=== PATIENT | male | born 1950 | race Caucasian/White ===

== ENCOUNTER 2017-05-30 10:26 | Emergency (ER) | payer MEDICARE ==
--- NOTE | 2017-05-30 12:04 | RAD ---
Indication: Neck swelling and head and neck purple discoloration when lying supine. Comparison: No relevant prior exams available on the [facility] for comparison. Technique: Ultrasound of the neck including Doppler of the bilateral internal jugular and subclavian veins. Report: The bilateral internal jugular and subclavian veins while patent demonstrate abnormal waveforms with loss of normal respiratory phasicity which may be seen in setting of SVC obstruction. Bilateral complete soft tissue neck ultrasound is without evidence for lymphadenopathy or other solid or cystic mass lesion. IMPRESSION: The bilateral internal jugular and subclavian veins while patent demonstrate abnormal waveforms with loss of normal respiratory phasicity which may be seen in setting of SVC obstruction. Correlate with clinical assessment and consider contrast-enhanced CT of the thorax for further assessment if deemed appropriate.
[2017-05-30 12:10] VITALS: BP 120/79
--- NOTE | 2017-05-30 12:23 | UC ---
Neck Pain HPI - HPI Summary HPI Summary: neck mass on the right side for a year . pt. was having an out patient imaging down for his right side neck mass it was noted that the pts face is turning blue, pt. denies any chest pain , no palpitation , soft tissue neck us was done : IMPRESSION: The bilateral internal jugular and subclavian veins while patent demonstrate abnormal waveforms with loss of normal respiratory phasicity which may be seen in setting of SVC obstruction. Correlate with clinical assessment and consider contrast- enhanced CT of the thorax for further assessment if deemed appropriate. - History of Current Complaint Chief Complaint: UCGeneralIllness Stated Complaint: RIGHT SIDE NECK COMPLAINT Time Seen by Provider: 05/30/17 11:04 Hx Obtained From: Patient, Family/Cytogenetics Technologist Onset/Duration Of Injury/Symptoms: Weeks - one year Timing: Constant Onset/Duration: Gradual Onset, Still Present Severity: Moderate Pain Intensity: 0 Location: Discrete At: - right side neck Character: Aching Aggravating Factors: Other: - lying down Alleviating Factors: Nothing Associated Signs & Symptoms: Positive: Swelling - right side neck - Allergies/Home Medications Allergies/Adverse Reactions: Allergies Allergy/AdvReac Type Severity Reaction Status Date / Time No Known Allergies Allergy Verified 05/30/17 11:52 Home Medications: Home Medications LORazepam [Ativan 2 MG TAB] 2 mg PO ONCE 05/30/17 [History Confirmed 05/30/17] Metformin ER (NF) 500 mg PO BID 05/30/17 [History Confirmed 05/30/17] Multivitamin [Multivitamins] 1 cap PO DAILY 05/30/17 [History Confirmed 05/30/17 ] PMH/Surg Hx/FS Hx/Imm Hx Endocrine History: Diabetes - Surgical History Surgical History: None - Family History Known Family History: Positive: Hypertension - Social History Alcohol Use: None Substance Use Type: Prescribed Smoking Status (MU): Former Smoker When Did the Patient Quit Smoking/Using Tobacco: 13 years ago Review Of Systems Constitutional: Positive: Negative Skin: Positive: Negative Eyes: Positive: Negative ENT: Positive: Negative Respiratory: Positive: Negative Cardiovascular: Positive: Negative All Other Systems Reviewed And Are Negative: Yes Physical Exam Triage Information Reviewed: Yes Appearance: Well-Appearing, No Pain Distress, Well-Nourished Vital Signs: Initial Vital Signs Temp 99.3 F 05/30/17 11:55 Pulse 168 05/30/17 11:55 Resp 22 05/30/17 11:55 BP 120/79 05/30/17 11:55 Pulse Ox 98 05/30/17 11:55 Vital Signs Reviewed: Yes Eyes: Positive: Conjunctiva Clear ENT: Positive: Normal ENT inspection, Hearing grossly normal, Pharynx normal Neck: Positive: Other: - + large mass right side of the neck , not tender, soft to touch , no erythema Respiratory: Positive: Chest non-tender, Lungs clear, Normal breath sounds, No respiratory distress Cardiovascular: Positive: Tachycardia Abdominal Exam: Normal Skin Exam: Normal Diagnostics - Laboratory Diagnostic Studies Completed/Ordered: us soft tissue neck : IMPRESSION: The bilateral internal jugular and subclavian veins while patent demonstrate. abnormal waveforms with loss of normal respiratory phasicity which may be seen in setting. of SVC obstruction. Correlate with clinical assessment and consider contrast-enhanced CT. of the thorax for further assessment if deemed appropriate. Neck Pain Course/Dx - Course Course Of Treatment: pt. will go to [facility] for eval. pt. signed AMA didn't want to take the ambulance ride - Differential Dx/Diagnosis Provider Diagnoses: neck mass. tachycardia Discharge - Discharge Plan Condition: Fair Disposition: AGAINST MEDICAL ADVICE Referrals: Harsha Hernandez MD [Primary Care Provider] -
== END 2017-05-30 12:20 | disposition left against medical advice (07) ==
LOC: UCCORT 10:26
DX: R22.1 Localized swelling, mass and lump, neck (principal); R00.0 Tachycardia, unspecified; E11.9 Type 2 diabetes mellitus without complications; Z79.84 Long term (current) use of oral hypoglycemic drugs; Z87.891 Personal history of nicotine dependence
CPT/HCPCS: 76536; 93005; 99202; G0463

== ENCOUNTER 2017-05-30 13:01 | Inpatient (IN) | payer MEDICARE ==
[2017-05-30] MEDS ORDERED: Diltiazem IV* 5 MG/ML 5 ML VIAL (for loading dose/IV Push) (25 MG) ONE (13:22)
[2017-05-30] MEDS ORDERED: Adenosine* 3 MG/ML VIAL ONE (13:27)
[2017-05-30] MEDS ORDERED: Adenosine* 3 MG/ML VIAL IV PUSH ONE (13:53)
[2017-05-30] MEDS ORDERED: Diltiazem IV* 5 MG/ML 5 ML VIAL (for loading dose/IV Push) (25 MG) IV SLOW PU ONE (13:53)
[2017-05-30] MEDS ORDERED: NS 0.9% 1000 ML*IV.FLUID IV ONE (13:53)
[2017-05-30 14:03] LABS: ABS Basophils 0.1 10^3/ul (0-0.2); ABS Eosinophils 0.1 10^3/ul (0-0.6); ABS Lymphocytes 1.7 10^3/ul (1.0-4.8); ABS Monocytes 0.7 10^3/ul (0-0.8); ABS Neutrophils 4.9 10^3/ul (1.5-7.7); ABS Nucleated RBC 0 10^3/ul; Hematocrit 41 % (42-52); Hemoglobin 13.6 g/dl (14.0-18.0); Lymphocyte % 23.2 % (25-47); Mean Corpuscular HGB Conc 33 g/dl (31-36); Mean Corpuscular Hemoglobin 30 pg (27-31); Mean Corpuscular Volume 91 fL (80-94); Mean Platelet Volume 8 um3 (7.4-10.4); Nucleated Red Blood Cells % 0.2; Platelet Count 222 10^3/ul (150-450); Red Blood Count 4.49 10^6/ul (4.0-5.4); Red Cell Distribution Width 13 % (10.5-15); White Blood Count 7.4 10^3/ul (3.5-10.8)
[2017-05-30 14:18] LABS: EGFR Non-African American 96.4 (>60)
--- NOTE | 2017-05-30 14:49 | RAD ---
HISTORY: Cyanosis COMPARISONS: August 15, 2007 VIEWS: 1: frontal portable view of the chest at 2:15 PM FINDINGS: LINES AND TUBES: None. CARDIOMEDIASTINAL SILHOUETTE: The cardiomediastinal silhouette is normal for portable technique. PLEURA: The costophrenic angles are sharp. No pleural abnormalities are noted. LUNG PARENCHYMA: There is hyperinflation. There is a 3.3 cm nodular density overlying the right upper lung. ABDOMEN: The upper abdomen is clear. There is no subphrenic gas. BONES AND SOFT TISSUES: No bone or soft tissue abnormalities are noted. IMPRESSION: 3.3 CM NODULAR DENSITY OVERLYING THE RIGHT LUNG APEX. RECOMMEND CONSIDERATION OF FURTHER EVALUATION WITH CONTRAST-ENHANCED CT OF THE CHEST.
[2017-05-30] MEDS ORDERED: Diltiazem IV VIAL* 125 MG in NS 0.9% 100 ML* 100 ML IVPB ONE (15:00)
[2017-05-30] MEDS ORDERED: Dextrose 50% Syringe 50 ML* 25 GM/50 ML SYRINGE IV PUSH PRN (15:41)
[2017-05-30] MEDS ORDERED: Metoprolol Tartrate IV* 1 MG/ML 5 ML VIAL IV ONE ×2 (15:45→17:01)
[2017-05-30] MEDS ORDERED: Metoprolol Tartrate IV* 1 MG/ML 5 ML VIAL ONE (15:49)
[2017-05-30] MEDS ORDERED: Diltiazem TAB* 30 MG PO SCH (16:00)
[2017-05-30] MEDS: Diltiazem TAB* 30 MG PO SCH ×2 (16:18→21:03)
[2017-05-30] MEDS ORDERED: Potassium Chlor TAB* 20 MEQ TAB.ER PO ONE (18:07)
[2017-05-30] MEDS ORDERED: LORazepam TAB(*) 1 MG PO SCH (19:00)
[2017-05-30] MEDS ORDERED: Insulin LISPRO* 1 UNITS UNIT SUBCUT ONE (20:16)
[2017-05-30] MEDS: Insulin LISPRO* 1 UNITS UNIT SUBCUT SCH (20:52)
[2017-05-30] MEDS: Rivaroxaban TAB(*) 20 MG TAB PO SCH (21:03)
--- NOTE | 2017-05-30 21:10 | HP ---
CC: Dr. Harsha Hernandez * HISTORY AND PHYSICAL: DATE OF ADMISSION: 05/30/17 PRIMARY CARE PROVIDER: Dr. Harsha Hernandez. ATTENDING PHYSICIAN: Vel Vazquez MD * (dictated by Lourdes Tijerina NP). CHIEF COMPLAINT: Right neck swelling for 1 year. HISTORY OF PRESENT ILLNESS: Mr. Tapia is a 67-year-old male with past medical history significant for diabetes mellitus and COPD, who was at the imaging center at urgent care today to undergo an MRA of his neck to evaluate a right neck mass that he has had for approximately 1 year. According to the patient, when they had him lie back and tip his head back for the imaging, his face turned pale and blue in color. Due to this, they sent the patient to urgent care for further evaluation. The patient denies any recent fever, chills, chest pain, nausea, vomiting, diarrhea. He reports cough with occasional phlegm production. He also report shortness of breath at baseline. He denies any palpitations. He reports feeling intermittently lightheaded when he stands up too fast. The patient underwent an ultrasound of his right neck today, showing a possible SVC syndrome. According to the patient, his primary care provider has been trying to arrange a CT scan for some time, but insurance keeps declining authorization for this. The patient was sent to the emergency room for further evaluation. While in the emergency room, the patient was found to have atrial fibrillation with RVR with the initial rate in the 160s. He received 6 mg IV adenosine slowing his rate down into the 60s. He was found to have an atrial flutter with a 4:1 block. He also received IV diltiazem in addition to some normal saline and he also had labs that were fairly unremarkable. He had a chest x- ray showing a 3.3 cm nodule density overlying the right lung apex. The hospitalists were asked to evaluate the patient for admission. PAST MEDICAL HISTORY: 1. Diabetes mellitus. 2. COPD. PAST SURGICAL HISTORY: None. HOME MEDICATIONS: 1. Multivitamin 1 tablet oral daily. 2. Metformin 500 mg oral twice daily. 3. Lorazepam 2 mg oral once prior to MRA today. ALLERGIES: No known drug allergies. FAMILY HISTORY: The patient's father had a history of a pacemaker. He denies any family history of diabetes mellitus. His paternal grandfather and maternal aunt had a history of lung cancer. SOCIAL HISTORY: The patient is a former smoker. He reports quitting approximately 12 years ago, when he was diagnosed with COPD. The patient reports drinking 6 12- ounce beers daily. He denies recreational drug use. He lives with his . His , Aide Tapia will be his surrogate decision maker in the event he is unable to make decisions for himself. REVIEW OF SYSTEMS: I performed an 11-point review of systems. All the pertinent positives and negatives are mentioned in the history of present illness. The remaining review of systems are negative. PHYSICAL EXAMINATION GENERAL APPEARANCE: The patient is alert, pleasant, appears to be in no acute distress. VITAL SIGNS: Temperature 97.7, heart rate 101, respiratory rate 17, O2 sat 98% on room air. HEENT: Normocephalic, atraumatic. Pupils are equal and reactive to light. Extraocular movements are intact. The patient has what appears to be soft tissue swelling to bilateral upper chest and into his neck with the right worse than the left. RESPIRATORY: There is no accessory muscle use. The lungs are clear to auscultation bilaterally. CARDIOVASCULAR: Irregular rate and rhythm. S1 and S2 present. There is no murmurs, rubs, or gallops heard. ABDOMEN: Soft, nontender, nondistended. There are bowel sounds present x4. EXTREMITIES: There is no lower extremity edema. DP and PT pulses are 2+ and symmetric. MUSCULOSKELETAL: There is no clubbing or cyanosis noted. The patient exhibits good strength in all extremities. NEUROLOGICAL: The patient is alert and oriented x4. Cranial nerves II through XII are grossly intact. PSYCHOLOGICAL: The patient is calm and cooperative. SKIN: There is no rashes or abnormalities seen. DIAGNOSTIC STUDIES/LAB DATA: Sodium 133, potassium 3.8, chloride 101, CO2 of 25, BUN 14, creatinine 0.80, glucose 212. White blood cell count 7.4, hemoglobin 13.6, hematocrit 41, platelet count 222,000. EKG from 1311 shows atrial fibrillation with RVR and a rate of 160. Repeat EKG at 1332, shows an atrial flutter with 4:1 block. There are no acute signs of ischemia and no previous EKGs for comparison. Chest x-ray from today shows a 3.3 cm nodular density overlying the right lung apex. Consider further evaluation with contrast enhanced CT of the chest. IMPRESSION: Mr. Tapia is a 67-year-old male with past medical history significant for chronic obstructive pulmonary disease, and diabetes mellitus, who presented to the emergency room today with new atrial fibrillation. He will be admitted as an observation for new onset atrial flutter. ASSESSMENT/PLAN: 1. New onset atrial flutter. The patient's heart rate is better controlled at this point. He has received an IV bolus of diltiazem, adenosine and 2 doses of metoprolol 5 mg each while in the emergency room. We also started him on oral Cardizem. We will continue him on Cardizem 30 mg oral every 6 hours. If this controls his rate, we will switch him to Cardizem CD. We will get an echocardiogram in the morning. The patient has a JKNCE-RPER-9 score of 2 points , and he will be started on Xarelto. If the patient continues to have an uncontrolled rhythm, we will consider getting a cardiology consult in the morning. We will monitor him on telemetry. 2. Diabetes mellitus. The patient reports being a newly diagnosed diabetic and states that he was just recently started on metformin. For now, I am going to hold his metformin, do fingersticks a.c. and h.s. with lispro sliding scale coverage. 3. Alcohol abuse. The patient is drinking 6 beers daily. I am going to put him on the [place] protocol with Ativan. 4. Chronic obstructive pulmonary disease. The patient has no signs of chronic obstructive pulmonary disease exacerbation at this time and is not currently on any home medications. 5. Possible subclavian syndrome. According to the patient's soft tissue ultrasound of his neck today, it appears he possibly has subclavian syndrome. In addition, he has a possible nodule in his right upper lung apex. The patient should have an outpatient CT scan to further evaluate for SVC syndrome and a possible lung mass. 6. Fluids, electrolytes, and nutrition. The patient will be on consistent carbohydrate diet. 7. Code status. Full code. 8. DVT prophylaxis. The patient is at high risk and will be started on Xarelto for his atrial fibrillation. 9. Disposition. Observation. TIME SPENT: Time for this admission was approximately 60 minutes, greater than half of that was spent with the patient and his discussing medications, past medical history, and the events leading up to his arrival today and performing a physical examination. The case has been reviewed with the attending Dr. Vazquez, who agrees with the plan of care. Reviewed by KAMILLA LANDA-uYki 05/31/17 1541 [id number]/[facility] #: [id number] MTDD
[2017-05-30] MEDS ORDERED: Heparin VIAL(*) 5000 UNITS/ML VIAL (FIVE THOUSAND) SUBCUT SCH (22:00)
[2017-05-31] MEDS: Diltiazem TAB* 30 MG PO SCH ×4 (03:45→21:34)
[2017-05-31] MEDS: Folic Acid TAB* 1 MG PO SCH (08:51)
[2017-05-31] MEDS: Multivitamins/Minerals TAB PO SCH (08:51)
[2017-05-31] MEDS: Insulin LISPRO* 1 UNITS UNIT SUBCUT SCH ×3 (08:54→17:25)
[2017-05-31] MEDS: Thiamine TAB* 100 MG TAB PO SCH (08:59)
--- NOTE | 2017-05-31 13:49 | PN ---
Subjective Date of Service: 05/31/17 Interval History: Patient seen and examined. Very anxious, concerned about what's happening to him , needs much reassurance about POC and communication with his PCP Dr. Britton. Explained POC to him and his and they are agreeable. Patient denies chest pain, c/o SOB when laying flat with head pressure and swimming sensation. No palpitations currently, denies n/v/d. Denies fever or chills. Objective Active Medications: Dextrose (D50w Syringe 50 Ml*) 12.5 gm IV PUSH .FOR FS < 60 - SS PRN PRN Reason: FS < 60 Diltiazem HCl (Cardizem Tab*) 30 mg PO Q6H [facility] Last Admin: 05/31/17 10:49 Dose: 30 mg Folic Acid (Folvite Tab*) 1 mg PO DAILY [facility] Last Admin: 05/31/17 08:51 Dose: 1 mg Insulin Human Lispro (Humalog*) 0 - 5 units SUBCUT AC [facility] PRN Reason: Protocol Last Admin: 05/31/17 12:43 Dose: 3 units Lorazepam (Ativan Tab(*)) 0 - [address] [facility] PROTOCOL [facility] PRN Reason: Protocol Lorazepam (Ativan Inj*) 2 mg IV PUSH ONCE ONE Stop: 05/31/17 14:01 Multivitamins/Minerals (Theragran/Minerals Tab*) 1 tab PO DAILY [facility] Last Admin: 05/31/17 08:51 Dose: 1 tab Rivaroxaban (Xarelto(*)) 20 mg PO 1700 [facility] Last Admin: 05/30/17 21:03 Dose: 20 mg Thiamine HCl (Vitamin B-1 Tab*) 100 mg PO DAILY [facility] Last Admin: 05/31/17 08:59 Dose: 100 mg Vital Signs - 8 hr 05/31/17 05/31/17 05/31/17 05:56 08:00 08:05 Temperature 98.6 F Pulse Rate 90 98 Respiratory 16 16 Rate Blood Pressure 113/68 126/77 (mmHg) O2 Sat by Pulse 97 100 Oximetry 05/31/17 05/31/17 05/31/17 09:10 10:08 12:00 Temperature 97.4 F 97.7 F 97.6 F Pulse Rate 68 96 96 Respiratory 14 20 Rate Blood Pressure 130/80 114/65 120/70 (mmHg) O2 Sat by Pulse 98 96 97 Oximetry Oxygen Devices in Use Now: Nasal Cannula Appearance: Alert, anxious Eyes: PERRLA Ears/Nose/Mouth/Throat: NL Teeth, Lips, Gums, Mucous Membranes Moist, - Neck: Trachea Midline, - - edematous neck, primarily right side diffuse spread to right anterior chest, no bruit Respiratory: Symmetrical Chest Expansion and Respiratory Effort, Clear to Auscultation Cardiovascular: NL Sounds; No Murmurs; No JVD, RRR Extremities: No Edema, No Clubbing, Cyanosis Skin: No Rash or Ulcers Neurological: Alert and Oriented x 3, NL Gait, NL Muscle Strength and Tone Nutrition: Taking PO's Result Diagrams: 05/30/17 13:49 05/30/17 13:49 Diagnostic Imaging: Patient Name: ALEENA GODFREY Medical Record#: [id number] Ordering Physician: Tony Schneider MD Acct.#: [id number] : 1950 Age: 67 Sex: M Location: EMERGENCY DEPARTMENT Exam Date: 05/30/17 1316 ADM Status: REG ER Order Information: CHEST AP PORTABLE Accession Number: [id number] CPT: 85591 HISTORY: Cyanosis COMPARISONS: August 15, 2007 VIEWS: 1: frontal portable view of the chest at 2:15 PM FINDINGS: LINES AND TUBES: None. CARDIOMEDIASTINAL SILHOUETTE: The cardiomediastinal silhouette is normal for portable technique. PLEURA: The costophrenic angles are sharp. No pleural abnormalities are noted. LUNG PARENCHYMA: There is hyperinflation. There is a 3.3 cm nodular density overlying the right upper lung. ABDOMEN: The upper abdomen is clear. There is no subphrenic gas. BONES AND SOFT TISSUES: No bone or soft tissue abnormalities are noted. IMPRESSION: 3.3 CM NODULAR DENSITY OVERLYING THE RIGHT LUNG APEX. RECOMMEND CONSIDERATION OF FURTHER EVALUATION WITH CONTRAST-ENHANCED CT OF THE CHEST. <Electronically signed by Maldonado Nunez MD in [place]> 05/30/17 1446 Dictated By: Maldonado Nunez MD Dictated Date/Time: 05/30/17 1446 Transcribed Date/Time: 05/30/17 1445 Copy to: Assess/Plan/Problems-Billing Assessment: This is a 67 year old male patient with a 1 year history of neck mass and possible SVC syndrome that had an episode of new onset atrial fibrillation during an MRA of the neck, with accompanying acute shortness of breath with hypoxia and headache/pressure while lying flat. - Patient Problems (1) Neck mass Code(s): R22.1 - LOCALIZED SWELLING, MASS AND LUMP, NECK SNOMED Code(s): 118336244 Comment: - High suspicion for SVC syndrome considering decompensation during MRA and cardiac instability - CXR also with nodular density of the right lung apex - CT soft tissues of the neck, chest abdomen and pelvis with contrast today - Tried to lay patient flat in room while on tele, difficult for him to tolerate (intense head pressure and increasing SOB), will place on oxygen for CT as well as ativan IV (2) New onset atrial fibrillation Code(s): I48.91 - UNSPECIFIED ATRIAL FIBRILLATION SNOMED Code(s): 35216481 Comment: - With RVR and hypoxia - Multiple doses of adenosine, cardizem and BB - Finally converted to RSR, sometimes tachycardic - Cardizem PO Q6H, transitioning to long-acting cardizem tomorrow - Initiated AC with xarelto - Continue telemetry (3) History of COPD Code(s): Z87.09 - PERSONAL HISTORY OF OTHER DISEASES OF THE RESPIRATORY SYSTEM SNOMED Code(s): 219876804 Comment: - Not in exacerbation (4) Anxiety Code(s): F41.9 - ANXIETY DISORDER, UNSPECIFIED SNOMED Code(s): 15867121 Comment: - Will give IV ativan prior to CT scans (5) ETOHism Code(s): F10.20 - ALCOHOL DEPENDENCE, UNCOMPLICATED SNOMED Code(s): 9051354 Comment: - On [place] protocol (6) DVT prophylaxis Code(s): JFK9409 - SNOMED Code(s): 000455111 Comment: - On xarelto (7) Full code status Code(s): Z78.9 - OTHER SPECIFIED HEALTH STATUS SNOMED Code(s): 120626788 Comment: - Full code Status and Disposition: Remain inpatient Counseling and/or Coordination of Care Minutes: Coordinated with Dr. Britton, his PCP
[2017-05-31] MEDS ORDERED: LORazepam INJ* 2 MG/ML 1 ML VIAL IV PUSH ONE (14:00)
[2017-05-31] MEDS ORDERED: Perflutren Lipid Microsphere* 3 ML VIAL ONE (14:02)
[2017-05-31] MEDS ORDERED: Iodixanol* (CONTRAST) 320 MG/ML 100 ML SDV IV ONE (15:00)
--- NOTE | 2017-05-31 16:43 | RAD ---
Indication: Neck mass. Contrast: Administered 50.2 ml of VISIPAQUE 320 mg/ml. CT of the neck was performed after IV contrast administration. Coronal and sagittal reconstructed images were obtained. The lung apices demonstrate a mass in the right lung apex measuring up to 3.0 cm. There is right paratracheal adenopathy noted. Inferior thyroid lobes are unremarkable. Submandibular glands are unremarkable. Dental artifact is noted. Parotid glands are otherwise unremarkable. Multiple collateral vessels are noted in the mediastinum and lower neck. No discrete masses are noted. The internal jugular veins are patent. IMPRESSION: There is a lung mass in the right apex. No significant adenopathy is noted in the neck, although multiple collaterals are noted. There is likely superior vena cava obstruction due to adenopathy. No discrete neck masses are noted.
--- NOTE | 2017-05-31 16:50 | RAD ---
INDICATION: Superior vena cava syndrome. Assess for neoplasm. COMPARISON: Chest radiograph and Ultrasound of the bilateral internal jugular and subclavian veins of one day prior. TECHNIQUE: Multidetector CT images were obtained from the lung apices to the ischial tuberosities with 96 mL Visipaque 320 IV contrast. Oral contrast administered. CHEST REPORT: Spiculated 2.4 x 3.3 cm mass at the apical segment of the RIGHT upper lobe corresponding with the chest radiograph finding. Tethering/architectural distortion of the surrounding RIGHT lung apex. No additional focal pulmonary lesions. Small dependent RIGHT pleural effusion. RIGHT paratracheal lymphadenopathy inseparable from near complete thrombosis of the superior vena cava. Precarinal and subcarinal lymphadenopathy. 1.7 cm short axis precarinal and 2.6 cm short axis subcarinal lymph nodes. 1.7 cm short axis RIGHT suprahilar lymph node. Bilateral subcentimeter axillary lymph nodes. Extensive opacified collateral veins from the LEFT upper extremity peripheral venous contrast injection at the shoulder, supraclavicular region, upper back, and mediastinum extending to the intrahepatic/suprahepatic inferior vena cava. Negative for cardiomegaly. Small pericardial effusion. Normal diameter thoracic aorta with mild atherosclerotic plaque. Lymphadenopathy results in high-grade stenosis of the RIGHT main pulmonary artery. No gross evidence for pulmonary embolism within limits of routine non dedicated pulmonary angiogram CT. Multiple healed RIGHT rib fractures. No suspicious focal thoracic osseous lesions. CHEST IMPRESSION: 1. 2.4 x 3.3 cm spiculated apical segment RIGHT upper lobe mass highly suspicious for a bronchogenic carcinoma. 2. 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 3. Extensive mediastinal lymphadenopathy inseparable from the thrombosed superior vena cava and resulting in high-grade stenosis of the RIGHT main pulmonary artery. No gross evidence for pulmonary embolism within limits of routine non dedicated pulmonary angiogram CT. 4. Enlarged RIGHT suprahilar lymph node. 5. Small RIGHT pleural effusion and small pericardial effusion. ABDOMEN PELVIS REPORT: Typical focal fatty infiltration at the LEFT medial hepatic segment flanking the fissure for the ligamentum teres. No CT abnormality of the gallbladder, pancreas, spleen. Negative for CT abnormality of the upper GI, small bowel, or diminutive medially extending appendix. Mild diverticulosis of the sigmoid colon without findings of diverticulitis. Negative for ascites, free air, hernias. Normal adrenal glands. Unremarkable kidneys with symmetric nephrograms and pyelograms. Unremarkable nondilated ureters and partially distended urinary bladder. Symmetric seminal vesicles. Negative for lymphadenopathy. Atherosclerotic plaque of normal diameter abdominal aorta and iliac arteries. Physiologic distention of the IVC. Negative for suspicious osseous lesions of the lumbar sacral spine, pelvis, or proximal femurs. ABDOMEN PELVIS IMPRESSION: No evidence for abdominal pelvic metastatic disease.
[2017-05-31] MEDS: Rivaroxaban TAB(*) 20 MG TAB PO SCH (17:24)
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
--- NOTE | 2017-05-31 19:18 | ECHO ---
Patient: ALEENA GODFREY [facility] Rec#: [id number] : 1950 Date: 05/31/2017 Age: 67y Height: 172.72 cm / 68.0 in Weight: 72.57 kg / 159.9 lbs Sex: M BSA: 1.86 Room#: 432 Admit Date#: 05/30/2017 Type: Inpatient Referring: Lourdes Nunn NP Reading: Elle Howe MD Submarine Worker: Lourdes Aguayo RDCS CC: Harsha Casarez Transthoracic Echocardiogram Indication: A-Fib/ a-flutter BP: 113/68 HR: 101 Rhythm: NSR with PACs Findings History: COPD, smoker, DM, daily ETOH use. Technical Comments: The study is technically difficult. The study is technically limited due to poor acoustic windows. The study is technically limited due to patient body habitus. Completed at 1610. Left Ventricle: The left ventricular chamber size is normal. There is no left ventricular hypertrophy. Global left ventricular wall motion and contractility are within normal limits. The left ventricle appears hyperdynamic. The estimated ejection fraction is 60-65%. There is no consistent Doppler evidence of clinically significant diastolic dysfunction. Left Atrium: The left atrial chamber size is normal. Right Ventricle: The right ventricular cavity size is normal. The right ventricular global systolic function is normal. Right Atrium: The right atrial cavity size is normal. Aortic Valve: The aortic valve is trileaflet. The aortic valve leaflets are mildly thickened. There is moderate thickening of the non coronary cusp. There is a trace of aortic regurgitation. There is no evidence of aortic stenosis. Mitral Valve: The mitral valve leaflets are mildly thickened. There is trace to mild mitral regurgitation. There is no evidence of mitral stenosis. Tricuspid Valve: The tricuspid valve leaflets are normal. There is mild tricuspid regurgitation. The right ventricular systolic pressure is estimated at 30 mmHg. There is evidence that pulmonary hypertension may be underestimated. There is no tricuspid stenosis. Pulmonic Valve: The pulmonic valve structure is not well visualized. There is no pulmonic stenosis. Pericardium: There is a small pericardial effusion. There are no signs of significant hemodynamic compromise. The pericardial effusion is seen adjacent to the right ventricle. A pericardial fat pad is visualized. Aorta: There is no dilatation of the ascending aorta. There is no dilatation of the aortic arch. The aortic root is normal in size. Pulmonary Artery: The main pulmonary artery appears normal. Venous: The inferior vena cava appears normal in size. There is a greater than 50% respiratory change in the inferior vena cava dimension. Contrast: Definity was used to optimize study. 4 mL of diluted Definity was utilized. Intravenous contrast was used to enhance endocardial border definition. Conclusions The left ventricular chamber size is normal. Global left ventricular wall motion and contractility are within normal limits. The left ventricle appears hyperdynamic. The estimated ejection fraction is 60-65%. The right ventricular global systolic function is normal. There is moderate thickening of the non coronary cusp of the aortic valve, good excursion of all leaflets. There is a trace of aortic regurgitation. There is trace to mild mitral regurgitation. There is mild tricuspid regurgitation. The right ventricular systolic pressure is estimated at 30 mmHg. No prior study to compare. Measurements Name Value Normal Range RVIDd (AP) 2D 2.8 cm (0.9 - 2.6) RVDdMajor (2D) 3.4 cm (2.2 - 4.4) RAd ISD 4CH 4.9 cm (3.4 - 4.9) RA (A4C)W 3.8 cm (2.9 - 4.6) IVSd (2D) 0.8 cm (0.6 - 1) LVPWd (2D) 0.9 cm (0.6 - 1) LVIDd (2D) 4 cm (3.6 - 5.4) LVIDs (2D) 3.1 cm - LV FS (2D) 22 % (25 - 45) Aortic Annulus 1.9 cm (1.4 - 2.6) Ao root diameter (2D) 3.1 cm (2.1 - 3.5) Ascending Ao 3 cm (2.1 - 3.4) Aortic arch 1.8 cm (1.8 - 3.4) LA dimension (AP) 2D 3.6 cm (2.3 - 3.8) LAd ISD 4CH 4.9 cm (2.9 - 5.3) LA ISD 4CH W 4.1 cm (2.5 - 4.5) Name Value Normal Range LA ESV SP 4CH (A/L) 59 ml - LA ESV SP 2CH (A/L) 62 ml - LA ESV BP (A/L) 62 ml - LA ESV BP (A/L) index 34 ml/m2 - LA ESV SP 4CH (MOD) 53 ml - LA ESV SP 2CH (MOD) 60 ml - Name Value Normal Range MV E-wave Vmax 0.54 m/sec - MV deceleration time 163.7 msec - MV A-wave Vmax 0.67 m/sec - MV E:A ratio 0.81 ratio - LV septal e' Vmax 0.07 m/sec - LV lateral e' Vmax 0.07 m/sec - LV E:e' septal ratio 7.14 ratio - LV E:e' lateral ratio 7.14 ratio - Name Value Normal Range AV Vmax 1.22 m/sec - AV VTI 23.3 cm - AV peak gradient 5.97 mmHg - AV mean gradient 3.83 mmHg - LVOT Vmax 0.93 m/sec - LVOT VTI 15.68 cm - LVOT peak gradient 3.47 mmHg - LVOT mean gradient 1.7 mmHg - TRISTA Vmax 0.31 m/sec - Name Value Normal Range TR Vmax 2.6 m/sec - TR peak gradient 27 mmHg - RAP 3 mmHg - RVSP 30 mmHg - IVC diameter 2 cm - Name Value Normal Range PV Vmax 0.82 m/sec - PV peak gradient 2.7 mmHg -
[2017-06-01] MEDS: Diltiazem TAB* 30 MG PO SCH ×4 (04:16→21:52)
[2017-06-01] MEDS: Insulin LISPRO* 1 UNITS UNIT SUBCUT SCH ×3 (08:43→18:09)
[2017-06-01] MEDS: Multivitamins/Minerals TAB PO SCH (08:46)
[2017-06-01] MEDS: Thiamine TAB* 100 MG TAB PO SCH (08:46)
[2017-06-01] MEDS: Folic Acid TAB* 1 MG PO SCH (08:46)
--- NOTE | 2017-06-01 09:26 | CONSULT ---
Consultation - Reason for Consultation Reason for Consultation: SVC syndrome Ordering Provider: Gretta Waite Chief Complaint: mental status changes during MRA History of Present Illness: 67 yo M w PMH of COPD, prior tobacco use, ongoing ETOH use, and newly diagnosed SVC syndrome. Trino is a fairly poor historian but reports that he was seen by a doctor 10 years ago and diagnosed with COPD. He quit smoking at that time. After that he stopped going to doctors. Approximately 1 year ago he developed neck swelling R>L. About 2 months ago he developed dilated blood vessels on his abdomen and chest as well as worsening SOB when he laid flat. Given the dilated blood vessels he went to a new primary ~3 weeks ago. He was ordered a chest CT but apparently insurance denied this twice, requiring a MRA of the neck first. He went to [facility] imaging on Monday for this. When lying flat he turned monroe and became less responsive. They sent him to urgent care where he was found to be in afib w RVR and referred to the ER. He was started on xeralto and has had 2 doses, most recently last night at 5 pm. He has converted to NSR but is tachycardic with this. He had imaging of his neck, chest, abdomen and pelvis, which I have personally reviewed. 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 There was no clear distant disease. We are being consulted with these findings. He does endorse 30 lb weight loss over the last year but states that it is intentional to get rid of his "pot belly". He denies headaches, though does feel a pressure in his head when he lies flat. He also gets SOB and feels like he is choking when he does this. He denies nausea, vomiting, abdominal pain, or bony pains. He is very anxious to leave the hospital. He drinks at least 6 beers per day and feels that he probably drinks too much. Allergies/Medications Medication: Dextrose (D50w Syringe 50 Ml*) 12.5 gm IV PUSH .FOR FS < 60 - SS PRN PRN Reason: FS < 60 Diltiazem HCl (Cardizem Tab*) 30 mg PO Q6H LITO Last Admin: 06/01/17 04:16 Dose: 30 mg Folic Acid (Folvite Tab*) 1 mg PO DAILY [facility] Last Admin: 06/01/17 08:46 Dose: 1 mg Insulin Human Lispro (Humalog*) 0 - 5 units SUBCUT AC [facility] PRN Reason: Protocol Last Admin: 06/01/17 08:43 Dose: 2 units Lorazepam (Ativan Tab(*)) 0 - 6 mg PO .PER [facility] PROTOCOL [facility] PRN Reason: Protocol Multivitamins/Minerals (Theragran/Minerals Tab*) 1 tab PO DAILY [facility] Last Admin: 06/01/17 08:46 Dose: 1 tab Thiamine HCl (Vitamin B-1 Tab*) 100 mg PO DAILY [facility] Last Admin: 06/01/17 08:46 Dose: 100 mg Allergies/Adverse Reactions: Allergies Allergy/AdvReac Type Severity Reaction Status Date / Time No Known Allergies Allergy Verified 05/30/17 11:52 History - Past Medical History Other History: COPD. recent DM. denies surgical history - Family History Other Family History: father lung cancer, smoker - Social History Hx Alcohol Use: Yes - daily Hx Tobacco Use: Yes - quit 10 yrs ago, >50 pk yr history Marital Status: Review of Systems - Review of Systems General Comments: extensive 14 pt ROS as per HPI Physical Exam - Physical Exam Physical Examination: Vital Signs Temp Pulse Resp BP Pulse Ox 97.6 F 97 18 138/76 98 06/01/17 06:13 06/01/17 08:03 06/01/17 06:13 06/01/17 08:03 06/01/17 08:03 sitting up, puffing breathing perr eomi op moist neck full R>L CTA bl s1 s2 nl, tachy obese abd nt +bs no LE edema spider angiomas across chest and abdomen A+O x 3, nonfocal neurological exam no LISS Results - Lab Results Lab Results: 05/31/17 05/31/17 06/01/17 16:40 21:31 07:11 POC Glucose (mg/dL) 211 H 216 H 235 H Assessment and Plan Impression: 67 yo M w heavy tobacco use history and COPD now with a RUL mass, mediastinal LISS and SVC syndrome, which has proven to be hemodynamically significant, however fortunately stable right now. I discussed this with Trino at length. Given the urgency of this diagnosis and treatment I have taken the liberty of consulting both radiation oncology and pulmonary for possible bronchoscopy. Given the xeralto the soonest this could be done would be tomorrow am. I do think he is stable enough to wait until Monday to start treatment, which would likely include chemotherapy (?cisplatin/etoposide) and radiation therapy. He will be unable to lie flat long enough for a staging brain MRI or bone scan and so at this point we will need to accept a likely stage III clinical diagnosis. Given the chronicity of his symptoms and the extensive collaterals I do not think his SVC would be amenable to stenting. Should he deteriorate AT ALL from a hemodynamic stand point he should be transferred to a higher level of care where he could get urgent RT over the weekend or vascular consultation. Thank you for this consultation and we will follow with you closely.
--- NOTE | 2017-06-01 09:36 | PN ---
Subjective Date of Service: 06/01/17 Interval History: Patient seen and examined at bedside. Denies fever, chills, lightheadedness or dizziness, shortness of breath, chest discomfort, N/V/D. Pt is very anxious and has many questions about his diagnosis, he is awaiting his 's arrival. Tele: Sinus rhythm, rate 60-80's. Pt noted to be tachy with HR in the 100's since given cancer diagnosis. Family History: Unchanged from Admission Social History: Unchanged from Admission Past Medical History: Unchanged from Admission Objective Active Medications: Dextrose (D50w Syringe 50 Ml*) 12.5 gm IV PUSH .FOR FS < 60 - SS PRN Reason: FS < 60 Diltiazem HCl (Cardizem Tab*) 30 mg PO Q6H LITO Folic Acid (Folvite Tab*) 1 mg PO DAILY LITO Insulin Human Lispro (Humalog*) 0 - 5 units SUBCUT AC LITO Lorazepam (Ativan Tab(*)) 0 - 6 mg PO .PER [facility] PROTOCOL [facility] Multivitamins/Minerals (Theragran/Minerals Tab*) 1 tab PO DAILY LITO Thiamine HCl (Vitamin B-1 Tab*) 100 mg PO DAILY LITO Vital Signs - 8 hr 06/01/17 06/01/17 06/01/17 02:22 04:29 06:13 Temperature 98.0 F 97.4 F 97.6 F Pulse Rate 86 92 93 Respiratory 18 20 18 Rate Blood Pressure 116/66 131/67 130/75 (mmHg) O2 Sat by Pulse 98 93 98 Oximetry 06/01/17 08:03 Temperature Pulse Rate 97 Respiratory Rate Blood Pressure 138/76 (mmHg) O2 Sat by Pulse 98 Oximetry Oxygen Devices in Use Now: None Appearance: NAD, pacing in room Ears/Nose/Mouth/Throat: Mucous Membranes Moist Neck: - - Neck large, right more swollen then the left. Respiratory: Symmetrical Chest Expansion and Respiratory Effort, Clear to Auscultation Cardiovascular: NL Sounds; No Murmurs; No JVD, RRR - , tachy Abdominal: NL Sounds; No Tenderness; No Distention Extremities: No Edema Skin: No Rash or Ulcers Neurological: Alert and Oriented x 3, NL Muscle Strength and Tone Lines/Tubes/Other Access: Clean, Dry and Intact Peripheral IV - site benign Nutrition: Taking PO's Result Diagrams: 05/30/17 13:49 05/30/17 13:49 Additional Lab and Data: Diagnostic Imagin. Chest xray - IMPRESSION: 3.3 CM NODULAR DENSITY OVERLYING THE RIGHT LUNG APEX. RECOMMEND CONSIDERATION OF FURTHER EVALUATION WITH CONTRAST-ENHANCED CT OF THE CHEST. 2. CT SOFT TISSUE NECK W - IMPRESSION: There is a lung mass in the right apex. No significant adenopathy is noted in the neck, although multiple collaterals are noted. There is likely superior vena cava obstruction due to adenopathy. No discrete neck masses are noted. 3. CT CHEST/ABD/PEL W - CHEST IMPRESSION: 1. 2.4 x 3.3 cm spiculated apical segment RIGHT upper lobe mass highly suspicious for a bronchogenic carcinoma. 2. 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 3. Extensive mediastinal lymphadenopathy inseparable from the thrombosed superior vena cava and resulting in high-grade stenosis of the RIGHT main pulmonary artery. No gross evidence for pulmonary embolism within limits of routine non dedicated pulmonary angiogram CT. 4. Enlarged RIGHT suprahilar lymph node. 5. Small RIGHT pleural effusion and small pericardial effusion. ABDOMEN PELVIS REPORT: Typical focal fatty infiltration at the LEFT medial hepatic segment flanking the fissure for the ligamentum teres. No CT abnormality of the gallbladder, pancreas, spleen. Negative for CT abnormality of the upper GI, small bowel, or diminutive medially extending appendix. Mild diverticulosis of the sigmoid colon without findings of diverticulitis. Negative for ascites, free air, hernias. Normal adrenal glands. Unremarkable kidneys with symmetric nephrograms and pyelograms. Unremarkable nondilated ureters and partially distended urinary bladder. Symmetric seminal vesicles. Negative for lymphadenopathy. Atherosclerotic plaque of normal diameter abdominal aorta and iliac arteries. Physiologic distention of the IVC. Assess/Plan/Problems-Billing Assessment: Mr. 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 - Patient Problems (1) Lung cancer Code(s): C34.90 - MALIGNANT NEOPLASM OF UNSP PART OF UNSP BRONCHUS OR LUNG SNOMED Code(s): 200302967 Comment: - With SVC syndrome - Oncology consult, appreciate input - Radiation oncology consult, pending - Pulmonology consult, pending - Will need a bronch NATHANIEL, holding xarelto (2) Neck mass Code(s): R22.1 - LOCALIZED SWELLING, MASS AND LUMP, NECK SNOMED Code(s): 705368645 Comment: - SVC syndrome - CXR also with nodular density of the right lung apex - CT soft tissues of the neck, chest abdomen and pelvis with contrast today - Pt will need emergent radiation after bronch and bx (3) New onset atrial fibrillation Code(s): I48.91 - UNSPECIFIED ATRIAL FIBRILLATION SNOMED Code(s): 73737605 Comment: - With RVR and hypoxia - Now in SR, sometimes tachy - Continue Cardizem - Hold xarelto for a bronch tomorrow (4) Alcoholism Code(s): F10.20 - ALCOHOL DEPENDENCE, UNCOMPLICATED SNOMED Code(s): 6404609 Comment: - WAM score 0-1 - Continue WAM protocol, multivit, thiamine and folic acid (5) Anxiety Code(s): F41.9 - ANXIETY DISORDER, UNSPECIFIED SNOMED Code(s): 05322819 Comment: - Supportive care (6) History of COPD Code(s): Z87.09 - PERSONAL HISTORY OF OTHER DISEASES OF THE RESPIRATORY SYSTEM SNOMED Code(s): 671071198 Comment: - No sign of exacerbation (7) DVT prophylaxis Code(s): OIA5256 - SNOMED Code(s): 847468704 Comment: - Hold chemical DVT prophylaxis, Pt will need a bronch (8) Full code status Code(s): Z78.9 - OTHER SPECIFIED HEALTH STATUS SNOMED Code(s): 279074455 Status and Disposition: Inpatient. Suspect Pt will be here for another 5-7 days, Pt will need emergent radiation.
[2017-06-01] MEDS ORDERED: LORazepam INJ* 2 MG/ML 1 ML VIAL IV PUSH ONE (11:24)
--- NOTE | 2017-06-01 12:56 | RAD ---
HISTORY: CT planning for radiation therapy mapping COMPARISONS: May 31, 2017 TECHNIQUE: Limited axial CT images were obtained of the chest for the purposes of radiation treatment planning. FINDINGS: Again noted is a mass of the right upper lobe with mediastinal lymphadenopathy. There is a small right pleural effusion, progressed from the previous examination IMPRESSION: LIMITED CT FOR THE PURPOSES OF RADIATION TREATMENT PLANNING. THERE HAS BEEN INTERVAL PROGRESSION OF A RIGHT PLEURAL EFFUSION.
[2017-06-01] MEDS ORDERED: Insulin LISPRO* 1 UNITS UNIT SUBCUT ONE (21:30)
[2017-06-01] MEDS ORDERED: Dextrose 50% Syringe 50 ML* 25 GM/50 ML SYRINGE IV PUSH PRN (21:30)
[2017-06-01] MEDS: Insulin GLARGINE(*) 1 UNITS UNIT SUBCUT SCH (22:05)
--- NOTE | 2017-06-01 22:54 | CONS ---
PULMONARY CONSULTATION REPORT: DATE OF CONSULT: 06/01/17 REQUESTING PROVIDERS: Dr. Marina Valles; Lourdes Kendall NP REASON FOR CONSULT: Evaluation of abnormal CT chest. HISTORY OF PRESENT ILLNESS: The patient is a 67-year-old male with a history of diabetes, COPD, has not seen a physician for over 10 years. He was initially seeing a physician 10 years ago for management of COPD. He had not returned to his primary care provider that he recently established with Dr. Harsha Hernandez until a year ago. The patient reported that he has noticed neck swelling about a year ago, right greater than left. Two months ago, he has noticed dilated blood vessels in his abdomen and chest and was feeling shortness of breath when he lied down flat. Given those dilated blood vessels, he went to his primary care physician about 3 weeks ago, a CT scan of the chest was ordered, insurance denied this twice and has required MRA of the neck. He went to [facility] in [place] on Monday to have an MRI done. He became monroe and became less responsive when lying flat and was sent into the urgent care, was found to be in AFib with RVR. He was started on Xarelto and had 2 doses most recently 1 day ago. He converted to normal sinus rhythm; however, continued to remain tachycardic. Given his clinical presentation, he further underwent imaging studies, which included chest x-ray, neck CT, and CT of chest, abdomen, and pelvis. I have personally reviewed those images. His chest x-ray was suggestive of mass lesion overlying the right lung apex with fullness at the paratracheal space on the right side. CT scan of the chest was personally reviewed by me - the patient noted to have 3.3-cm mass in the right upper lobe. He was also noted to have small right pleural effusion. There was evidence of right paratracheal lymphadenopathy, precarinal, and subcarinal adenopathy. The patient also noted to have right supraclavicular lymph node. He also found to have bilateral subcentimeter axillary lymph nodes. The patient noted to have multiple collateral veins on the left chest from the upper extremity into the supraclavicular area, upper back, and mediastinum into the inferior vena cava. Small pericardial effusion was also noted. There is evidence of narrowing of right main pulmonary artery secondary to the lymphadenopathy. Healed right rib fractures were also seen. The patient also with evidence of thrombosis of superior vena cava. No evidence of abdominal or pelvic metastasis was noted. The patient is a poor historian. The patient reports shortness of breath when he tries to walk; however, does not feel that is his significant problem. The patient reports that he has some trouble lying down flat and that he attributes to his weight in the abdomen. The patient reports 30 lb weight loss over the past year and states that it is intentional to get rid of his pot belly. He denies headaches, feels pressure in the head when he lies flat. Denies nausea, vomiting, abdominal pain, or bony pain. He drinks 6 beers per day and feels that he probably drinks too much. He would like to be discharged as soon as possible from the hospital and would like to go home if he can. PAST MEDICAL HISTORY: COPD, diabetes. PAST SURGICAL HISTORY: Denied any surgeries. MEDICATIONS: 1. Multivitamin. 2. Metformin. 3. Lorazepam. ALLERGIES: No known drug allergies. FAMILY HISTORY: Father has a history of pacemaker placement. Maternal aunt and paternal grandfather have history of lung cancer. SOCIAL HISTORY: Former smoker, reports he quit approximately 12 years ago when he was diagnosed with COPD. Reports drinking 6 to 12 ounces of beers daily. Denies recreational drug abuse. His is the decision maker. REVIEW OF SYSTEMS: All 14 systems reviewed and as per HPI. PHYSICAL EXAM: Vital Signs: Temperature 98.3, pulse 96 beats per minute, respiratory is 16 per minute, and O2 sat is 96% on room air, and blood pressure 127/67. The patient in bed and in no apparent distress. HEENT: Pupils are equal and reactive to light. Mucous membranes are moist. Neck: Fullness in the neck area, right greater than left. Skin: Evidence of spider angiomas across the chest and abdomen, prominent veins in the neck area. Extremities: Normal range of motion. No edema. Respiratory: Clear to auscultation bilaterally. Diminished air entry at bases. Cardiovascular: S1 and S2 present , tachycardic. Abdomen: Obese, nontender, and nondistended. Bowel sounds present. DIAGNOSTIC STUDIES/LAB DATA: WBC 7.4, hemoglobin 13.6, hematocrit 41, platelet count of 222. Sodium 133, chloride 101, bicarb 25, BUN 14, creatinine 0.8, glucose 212, lactic acid 1.4. LFTs within normal limits. Troponins within normal limits. Chest x-ray and CT scan of the chest as described above in HPI. IMPRESSION AND RECOMMENDATIONS: 67-year-old male, former smoker, family history of lung cancer, EtOH abuse, admitted with altered mental status and shortness of breath while obtaining MRI, found to have right upper lobe spiculated lesion and dense adenopathy in the mediastinum and hilum and evidence of superior vena cava thrombosis and collateral veins. The patient also with narrowing of right main stem bronchus from the dense adenopathy. Findings highly concerning for lung cancer with metastases to the lymph nodes. The patient to undergo radiation once diagnosis could be made. The patient is scheduled for bronchoscopy/EBUS in the morning. Procedure was discussed in detail with the patient and his . Associated risks and benefits were thoroughly explained. The patient and agreeable to the procedure. The patient is at a higher risk for procedure given superior vena cava syndrome and right main stem narrowing. The patient and family understand that given high risk of procedure and weighing the risks and benefits that it is still required for him to undergo the procedure and also understand that there is a chance that he might remain intubated post procedure if his respiratory status does not support maintaining respiration on his own. There is also possibility of hemodynamic compromise. Risks of mediastinitis, bleeding were discussed. The patient's last Xarelto dose was 1 day ago, will hold Xarelto tonight and the patient will also continue to be n.p.o. tonight. Thank you for allowing me to participate in the care of your patient. Case discussed with the patient, , hospitalist physician, and Dr. Marina Valles. [id number]/[facility] #: [id number] ASAF
[2017-06-02] MEDS: Diltiazem TAB* 30 MG PO SCH ×4 (05:30→21:58)
[2017-06-02] MEDS: Folic Acid TAB* 1 MG PO SCH (08:31)
[2017-06-02] MEDS: Thiamine TAB* 100 MG TAB PO SCH (08:31)
[2017-06-02] MEDS: Multivitamins/Minerals TAB PO SCH (08:31)
[2017-06-02] MEDS: Insulin LISPRO* 1 UNITS UNIT SUBCUT SCH ×3 (08:32→17:51)
[2017-06-02] MEDS ORDERED: LORazepam TAB(*) 0.5 MG PO ONE (10:34)
[2017-06-02 11:21] LABS: INR 0.98 (0.77-1.02)
[2017-06-02] MEDS ORDERED: fentaNYL* 50 MCG/ML 2 ML VIAL (100 MCG VIAL) ONE (12:47)
--- NOTE | 2017-06-02 16:27 | PN ---
Progress Note - Progress Note Date of Service: 06/02/17 - Pulm f/u note Note: Pt seen and examined at bedside. Denies any new complaints. Reprots that he could not sleep well last night. Denies change in breathing Active Medications Generic Name Dose Route Start Last Admin Trade Name Jay PRN Reason Stop Dose Admin Dextrose 12.5 gm 05/30/17 15:41 D50w Syringe 50 Ml* IV PUSH .FOR FS < 60 - SS PRN FS < 60 Dextrose 12.5 gm 06/01/17 21:30 D50w Syringe 50 Ml* IV PUSH .FOR FS < 60 - SS PRN FS < 60 Diltiazem HCl 30 mg 05/30/17 16:00 06/02/17 08:31 Cardizem Tab* PO 30 mg Q6H LITO Administration Folic Acid 1 mg 05/31/17 09:00 06/02/17 08:31 Folvite Tab* PO 1 mg DAILY LITO Administration Insulin Glargine 10 units 06/01/17 22:00 06/01/17 22:05 Lantus(*) SUBCUT 10 unit Q24H LITO Administration Insulin Human Lispro 0 - 5 units 05/30/17 16:30 06/02/17 12:34 Humalog* SUBCUT Not Given AC [facility] Protocol Lorazepam 0 - 6 mg 05/30/17 19:00 Ativan Tab(*) PO .PER [facility] PROTOCOL [facility] Protocol Multivitamins/Minerals 1 tab 05/31/17 09:00 06/02/17 08:31 Theragran/Minerals Tab* PO 1 tab DAILY LITO Administration Thiamine HCl 100 mg 05/31/17 09:00 06/02/17 08:31 Vitamin B-1 Tab* PO 100 mg DAILY LITO Administration Vital Signs Temp Pulse Resp BP Pulse Ox 98.2 F 101 18 121/77 98 06/02/17 15:55 06/02/17 15:55 06/02/17 16:00 06/02/17 15:55 06/02/17 15:55 Gen: Pt in NAD HEENT: Mucous Membranes Moist, no scleral icterus Neck: Neck large, right > left. Respiratory: Clear to Auscultation Cardiovascular: S1, S2+ , tachy Abdominal: BS+, No Distention Extremities: No Edema Skin: No Rash or Ulcers, engorged veins and spider nevi on chest Neurological: Alert and Oriented x 3, NL Muscle Strength and Tone Diagnostic Imagin. 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 I/R: 67 year old male patient with RUL mass, mediastinal adenoapthy, SVC syndrome, new onset atrial fibrillation Pt couldnot have bronchoscopy as he was deemed high risk for anesthesia Underwent CT guided bx, positive for NSCCL Rad onc and oncology on board To be started on radiation and possible chemo Hemodynamically stable now D/w Dr Cooper, pt and family
--- NOTE | 2017-06-02 18:34 | PN ---
Subjective Date of Service: 06/02/17 Interval History: Patient seen and examined at bedside. Denies fever, chills, shortness of breath , chest discomfort, N/V/D. Pt states that he has been ambulating in the halls without difficulty. Tele: Sinus rhythm, rate 90-100's. Family History: Unchanged from Admission Social History: Unchanged from Admission Past Medical History: Unchanged from Admission Objective Active Medications: Dextrose (D50w Syringe 50 Ml*) 12.5 gm IV PUSH .FOR FS < 60 - SS PRN Reason: FS < 60 Dextrose (D50w Syringe 50 Ml*) 12.5 gm IV PUSH .FOR FS < 60 - SS PRN Reason: FS < 60 Diltiazem HCl (Cardizem Tab*) 30 mg PO Q6H LITO Folic Acid (Folvite Tab*) 1 mg PO DAILY LITO Insulin Glargine (Lantus(*)) 10 units SUBCUT Q24H LITO Insulin Human Lispro (Humalog*) 0 - 5 units SUBCUT AC LITO Lorazepam (Ativan Tab(*)) 0 - 6 mg PO .PER [facility] PROTOCOL [facility] Multivitamins/Minerals (Theragran/Minerals Tab*) 1 tab PO DAILY LITO Thiamine HCl (Vitamin B-1 Tab*) 100 mg PO DAILY [facility] Vital Signs - 8 hr 06/02/17 06/02/17 06/02/17 11:22 12:32 15:55 Temperature 98.4 F 98.2 F Pulse Rate 99 101 Respiratory 18 16 18 Rate Blood Pressure 116/63 121/77 (mmHg) O2 Sat by Pulse 95 98 Oximetry 06/02/17 16:00 Temperature Pulse Rate Respiratory 18 Rate Blood Pressure (mmHg) O2 Sat by Pulse Oximetry Oxygen Devices in Use Now: None Appearance: NAD, sitting up in bed Ears/Nose/Mouth/Throat: Mucous Membranes Moist Neck: - - Neck and upper chest swelling, right greater than the left. Engorged veins and spider nevi on upper chest Respiratory: Symmetrical Chest Expansion and Respiratory Effort, Clear to Auscultation Cardiovascular: NL Sounds; No Murmurs; No JVD, RRR Abdominal: NL Sounds; No Tenderness; No Distention Extremities: No Edema Skin: No Rash or Ulcers Neurological: Alert and Oriented x 3, NL Muscle Strength and Tone Lines/Tubes/Other Access: Clean, Dry and Intact Peripheral IV - site benign Nutrition: Taking PO's Result Diagrams: 05/30/17 13:49 05/30/17 13:49 Additional Lab and Data: Diagnostic Imagin. Chest xray - IMPRESSION: 3.3 CM NODULAR DENSITY OVERLYING THE RIGHT LUNG APEX. RECOMMEND CONSIDERATION OF FURTHER EVALUATION WITH CONTRAST-ENHANCED CT OF THE CHEST. 2. CT SOFT TISSUE NECK W - IMPRESSION: There is a lung mass in the right apex. No significant adenopathy is noted in the neck, although multiple collaterals are noted. There is likely superior vena cava obstruction due to adenopathy. No discrete neck masses are noted. 3. CT CHEST/ABD/PEL W - CHEST IMPRESSION: 1. 2.4 x 3.3 cm spiculated apical segment RIGHT upper lobe mass highly suspicious for a bronchogenic carcinoma. 2. 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 3. Extensive mediastinal lymphadenopathy inseparable from the thrombosed superior vena cava and resulting in high-grade stenosis of the RIGHT main pulmonary artery. No gross evidence for pulmonary embolism within limits of routine non dedicated pulmonary angiogram CT. 4. Enlarged RIGHT suprahilar lymph node. 5. Small RIGHT pleural effusion and small pericardial effusion. ABDOMEN PELVIS REPORT: Typical focal fatty infiltration at the LEFT medial hepatic segment flanking the fissure for the ligamentum teres. No CT abnormality of the gallbladder, pancreas, spleen. Negative for CT abnormality of the upper GI, small bowel, or diminutive medially extending appendix. Mild diverticulosis of the sigmoid colon without findings of diverticulitis. Negative for ascites, free air, hernias. Normal adrenal glands. Unremarkable kidneys with symmetric nephrograms and pyelograms. Unremarkable nondilated ureters and partially distended urinary bladder. Symmetric seminal vesicles. Negative for lymphadenopathy. Atherosclerotic plaque of normal diameter abdominal aorta and iliac arteries. Physiologic distention of the IVC. Assess/Plan/Problems-Billing Assessment: Mr. 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 - Patient Problems (1) Lung cancer Code(s): C34.90 - MALIGNANT NEOPLASM OF UNSP PART OF UNSP BRONCHUS OR LUNG SNOMED Code(s): 711425134 Comment: - With SVC syndrome - S/P FNA today, Non-small cell ca - Oncology consult, appreciate input - Radiation oncology consult, pending - Pulmonology consult, input appreciated (2) Neck mass Code(s): R22.1 - LOCALIZED SWELLING, MASS AND LUMP, NECK SNOMED Code(s): 865367516 Comment: - SVC syndrome - CXR also with nodular density of the right lung apex - CT soft tissues of the neck, chest abdomen and pelvis with contrast today - Pt will have radiation on Monday (3) New onset atrial fibrillation Code(s): I48.91 - UNSPECIFIED ATRIAL FIBRILLATION SNOMED Code(s): 89666496 Comment: - With RVR and hypoxia - Now in SR, sometimes tachy - Continue Cardizem - Pt has stayed in sinus rhythm, will continue to hold xarelto (4) Alcoholism Code(s): F10.20 - ALCOHOL DEPENDENCE, UNCOMPLICATED SNOMED Code(s): 9582859 Comment: - WAM score 0-1 - Continue WAM protocol, multivit, thiamine and folic acid (5) Anxiety Code(s): F41.9 - ANXIETY DISORDER, UNSPECIFIED SNOMED Code(s): 57072929 Comment: - Supportive care (6) History of COPD Code(s): Z87.09 - PERSONAL HISTORY OF OTHER DISEASES OF THE RESPIRATORY SYSTEM SNOMED Code(s): 402288283 Comment: - No sign of exacerbation (7) DVT prophylaxis Code(s): QEQ1894 - SNOMED Code(s): 118861065 Comment: - SCDs (8) Full code status Code(s): Z78.9 - OTHER SPECIFIED HEALTH STATUS SNOMED Code(s): 689276664 Status and Disposition: Inpatient. Plan for possible discharge to home on Monday after Radiation.
[2017-06-02] MEDS: Insulin GLARGINE(*) 1 UNITS UNIT SUBCUT SCH (21:58)
[2017-06-03] MEDS: Diltiazem TAB* 30 MG PO SCH ×2 (04:23→09:03)
[2017-06-03] MEDS: Folic Acid TAB* 1 MG PO SCH (09:03)
[2017-06-03] MEDS: Multivitamins/Minerals TAB PO SCH (09:03)
[2017-06-03] MEDS: Thiamine TAB* 100 MG TAB PO SCH (09:03)
[2017-06-03] MEDS: Insulin LISPRO* 1 UNITS UNIT SUBCUT SCH ×2 (09:04→13:13)
--- NOTE | 2017-06-03 09:36 | PN ---
Subjective Date of Service: 06/03/17 Interval History: Mr. Tapia denies complaint and has been ambulating in the hallway without difficulty. He is very eager for discharge to home. Family History: Unchanged from Admission Social History: Unchanged from Admission Past Medical History: Unchanged from Admission Objective Active Medications: Dextrose (D50w Syringe 50 Ml*) 12.5 gm IV PUSH .FOR FS < 60 - SS PRN Dextrose (D50w Syringe 50 Ml*) 12.5 gm IV PUSH .FOR FS < 60 - SS PRN Diltiazem HCl (Cardizem Tab*) 30 mg PO Q6H LITO Folic Acid (Folvite Tab*) 1 mg PO DAILY LITO Insulin Glargine (Lantus(*)) 10 units SUBCUT Q24H LITO Insulin Human Lispro (Humalog*) 0 - 5 units SUBCUT AC LITO Lorazepam (Ativan Tab(*)) 0 - 6 mg PO .PER [facility] PROTOCOL [facility] Multivitamins/Minerals (Theragran/Minerals Tab*) 1 tab PO DAILY LITO Thiamine HCl (Vitamin B-1 Tab*) 100 mg PO DAILY LITO Vital Signs: Temp Pulse Resp BP Pulse Ox 96.8 F 96 16 122/75 96 06/03/17 07:26 06/03/17 07:26 06/03/17 07:26 06/03/17 07:26 06/03/17 07:26 Oxygen Devices in Use Now: None Appearance: Male ambulating in hallways in [facility] Eyes: No Scleral Icterus Ears/Nose/Mouth/Throat: Mucous Membranes Moist, - - Right neck swelling noted Neck: Trachea Midline Respiratory: Symmetrical Chest Expansion and Respiratory Effort, Clear to Auscultation Cardiovascular: NL Sounds; No Murmurs; No JVD, No Edema Abdominal: NL Sounds; No Tenderness; No Distention Lymphatic: No Cervical Adenopathy Extremities: No Edema Skin: No Rash or Ulcers Neurological: Alert and Oriented x 3, NL Muscle Strength and Tone Nutrition: Taking PO's Result Diagrams: 05/30/17 13:49 05/30/17 13:49 Additional Lab and Data: Diagnostic Imaging: . Assess/Plan/Problems-Billing Assessment: Mr. 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 - Patient Problems (1) Lung cancer Comment: - With SVC syndrome - S/P FNA, Non-small cell ca - Oncology consult, appreciate input. Anticipate chemotherapy starting next week - Radiation oncology consult, plan to start radiation Monday. - Pulmonology consult, input appreciated. (2) New onset atrial fibrillation Comment: - Currently in NSR. - Continue Cardizem. - Resume xarelto. (3) Anxiety Comment: - Supportive care (4) Alcoholism Comment: - No sign of withdrawal. - Continue multivitamin, thiamine and folic acid. (5) History of COPD Comment: - No sign of exacerbation (6) Diabetes Comment: - Resume metformin. (7) DVT prophylaxis Comment: - SCDs (8) Full code status Comment: Status and Disposition: Inpatient. Discharge to home.
--- NOTE | 2017-06-03 11:31 | PN ---
Progress Note - Progress Note Date of Service: 06/03/17 - Pulm f/u note Note: Pt seen and examined at bedside. No acute events O/n. Pt denies any issues with breathing, feels restricted with having to stay in his room Denies pain at biopsy site Active Medications Generic Name Dose Route Start Last Admin Trade Name Anatoliyq PRN Reason Stop Dose Admin Dextrose 12.5 gm 05/30/17 15:41 D50w Syringe 50 Ml* IV PUSH .FOR FS < 60 - SS PRN FS < 60 Dextrose 12.5 gm 06/01/17 21:30 D50w Syringe 50 Ml* IV PUSH .FOR FS < 60 - SS PRN FS < 60 Diltiazem HCl 30 mg 05/30/17 16:00 06/03/17 09:03 Cardizem Tab* PO 30 mg Q6H LIOT Administration Folic Acid 1 mg 05/31/17 09:00 06/03/17 09:03 Folvite Tab* PO 1 mg DAILY LITO Administration Insulin Glargine 10 units 06/01/17 22:00 06/02/17 21:58 Lantus(*) SUBCUT 10 unit Q24H LITO Administration Insulin Human Lispro 0 - 5 units 05/30/17 16:30 06/03/17 09:04 Humalog* SUBCUT 2 units AC LITO Administration Protocol Lorazepam 0 - 6 mg 05/30/17 19:00 Ativan Tab(*) PO .PER [facility] PROTOCOL [facility] Protocol Multivitamins/Minerals 1 tab 05/31/17 09:00 06/03/17 09:03 Theragran/Minerals Tab* PO 1 tab DAILY LITO Administration Thiamine HCl 100 mg 05/31/17 09:00 06/03/17 09:03 Vitamin B-1 Tab* PO 100 mg DAILY LITO Administration Vital Signs Temp Pulse Resp BP Pulse Ox 96.8 F 96 16 122/75 96 06/03/17 07:26 06/03/17 07:26 06/03/17 08:00 06/03/17 07:26 06/03/17 07:26 Gen: Pt in NAD, lying down comfortably in bed HEENT: Mucous membranes moist, no scleral icterus Neck: Neck large, right > left. Respiratory: Clear to Auscultation, no wheeze Cardiovascular: S1, S2+ , tachy Abdominal: BS+, No Distention, NT Extremities: No Edema Skin: No Rash or Ulcers, engorged veins and spider nevi on chest Neurological: Alert and Oriented x 3, no focal deficits Imaging: CT guided biopsy of RUL mass yesterday Biopsy: Positive for NSCLC I/R: 67 year old male patient with RUL mass, mediastinal adenoapthy, SVC syndrome, new onset atrial fibrillation Pt couldnot have bronchoscopy as he was deemed high risk for anesthesia Underwent CT guided bx, positive for NSCCL Rad onc and oncology on board To be started on radiation on Monday and possible chemo Monday or Monday when final biopsy results are back Hemodynamically stable now , no airway compromise issues D/w Dr Cooper, pt and family
[2017-06-03 13:02] VITALS: BP 128/76
--- NOTE | 2017-06-03 16:07 | RADMED ---
RADIATION ONCOLOGY INPATIENT CONSULTATION NOTE: DATE OF CONSULT: 06/01/17 REFERRING PHYSICIAN: Dr. Valles. DIAGNOSIS: Suspected lung cancer. PERFORMANCE STATUS: ECOG 2. HISTORY OF PRESENT ILLNESS: Trino Tapia is a 67-year-old gentleman who has had neck swelling over a prolonged period of time. He was undergoing medical evaluation and was scheduled for MRA of the neck. When he laid down, he developed pallor and appeared cyanotic, and was referred originally to urgent care, and is now admitted to the hospital for additional evaluation. After he was referred to urgent care, he was found to have atrial flutter with rapid ventricular rate. CT scan of the chest, abdomen, and pelvis have been obtained identifying 3-cm mass in the apex of the right lung with mediastinal adenopathy encasing the right pulmonary artery and FVC with extensive collateralization, no evidence for distant metastatic disease appreciated. He is planned for biopsy, and radiation oncology consultation is placed for management of suspected lung cancer with SVC syndrome. PAST MEDICAL HISTORY: Diabetes, COPD. MEDICATIONS: As per the inpatient record. ALLERGIES: No known drug allergies. FAMILY HISTORY: No history of malignancy reported in his first-degree relatives. SOCIAL HISTORY: He is a former smoker, quit approximately 12 years ago. He is accompanied by his who is quite supportive. He is a social drinker. REVIEW OF SYSTEMS: As in the history of present illness, otherwise complete review of systems is obtained from the patient, negative for additional significant findings. PHYSICAL EXAM: Temperature 97.7, heart rate 101, respiratory rate 17, oxygen saturation 98% on room air. General: He is awake, alert, oriented, in no acute distress. Normocephalic, atraumatic. Sclerae are anicteric. Neck: With swelling in the neck and right shoulder, right greater than left. Lungs: Symmetric air entry bilaterally. Cardiovascular: S1, S2, regular. Abdomen: Soft, nontender. No mass, no organomegaly. Extremities: No cyanosis, clubbing , or edema. Neurologic: Cranial nerves II through XII are intact. Strength is symmetric in proximal and distal muscle groups in the upper and lower extremities. RADIOLOGY: Reviewed as in the history of present illness. ASSESSMENT AND PLAN: Trino Tapia is a 67-year-old gentleman with SVC syndrome attributed to mediastinal adenopathy with a right upper lobe mass highly suspicious for lung cancer with biopsy planned. I did review his history as well as the radiographic findings, and discussed at some length with the patient and his family. I explained the concern for underlying lung cancer and the rationale for biopsy for diagnosis. We discussed radiation therapy either in a palliative means or as a definitive treatment. There is no known evidence of distant metastatic disease identified, and presuming a biopsy confirms cancer , most likely concurrent chemoradiation with definitive intent will be recommended. I did answer the patient and his family's question to the best of my ability. He is inclined to proceed with treatment tentatively, and with the goal of proceeding as quickly as possible with his active SVC syndrome, he signed consent and will undergo CT simulation, but our plan is to wait for pathology before initiating treatment. I did invite the patient and his family to contact me with any additional questions or concerns and tentatively plan for 6000 cGy with concurrent chemotherapy potentially to start June 05, 2017. [id number]/[facility] #: [id number] MTDD
--- NOTE | 2017-06-04 10:24 | DS ---
CC: Harsha Hernandez MD * [facility] MEDICINE DISCHARGE SUMMARY: DATE OF ADMISSION: 05/30/17 DATE OF DISCHARGE: 06/03/17 ATTENDING PHYSICIAN: Peter Gibbs MD * (dictation provided by Omayra Craft NP). PRIMARY DIAGNOSES: 1. Non-small cell lung cancer. 2. Superior vena cava syndrome. 3. Atrial fibrillation. SECONDARY DIAGNOSES: 1. Diabetes. 2. Chronic obstructive pulmonary disease. MEDICATIONS AT THE TIME OF DISCHARGE: 1. Multivitamin with minerals 1 tab p.o. daily. 2. Lorazepam 2 mg p.o. as needed. 3. Metformin 500 mg p.o. b.i.d. 4. Thiamine 100 mg p.o. daily. 5. Rivaroxaban 20 mg p.o. at dinner. 6. Folic acid 1 mg p.o. daily. 7. Diltiazem CD 120 mg p.o. daily. HOSPITAL COURSE: Mr. Tapia is a 67-year-old male with past medical history of diabetes and COPD who presented to the hospital on 05/30/17 with concern for right neck swelling for over a year. Please see the dictated H and P from [facility], for complete details. In brief, the patient had the swelling and had gone for MRA of his neck to evaluate right neck mass. According to the patient, when he went to lay flat for this test, he turned blue and was short of breath. He was therefore sent to the emergency room for evaluation. The ultrasound of neck performed in the emergency room showed possible SVC syndrome. He has also noted to be in atrial fibrillation with rapid ventricular response with a heart rate of about 160. Mr. Tapia was admitted to the hospital. He had a chest x-ray, which showed a 3.3 cm nodular density overlying the right lung apex. He had a neck CT, which showed the following: "There is a lung mass in the right apex, no significant adenopathy is noted in the neck, although multiple collaterals are noted. There is likely superior vena cava obstruction noted due to adenopathy. No discrete neck masses are noted." He had a transthoracic echocardiogram, which should the following: "Left ventricular chamber size is normal, global left ventricle wall motion contractility within normal limits. The left ventricle appears hyperdynamic. The estimated ejection fraction is 60% to 65%." There is no significant valvular abnormality is noted. Because of the findings of the lung mass, patient went on for a chest, abdomen, pelvis CT, which was read as follows: "A 2.4 x 3.3 cm spiculated apical segment right upper lobe mass highly suspicious for a bronchogenic carcinoma, near complete occlusion of the superior vena cava with extensive collateral venous return to the inferior vena cava, extensive mediastinal lymphadenopathy inseparable from the thrombosed superior vena cava and resulting in high-grade stenosis of the right main pulmonary artery." The abdomen and pelvis CT showed no evidence of abdominal/pelvic metastatic disease. The patient was seen in consultation by Dr. Marina Valles from oncology. I refer you to her notes for complete details but she arranged consultation with radiation oncology and pulmonary for bronchoscopy with biopsy. This was performed on 06/01/17. The pathology results showed that he has a non-small cell lung cancer. Mr. Tapia is doing well today. He is up ambulating on the unit with absolutely no distress. He is not hypoxic on room air. In terms of his atrial fibrillation with rapid ventricular response, he has good control now on Cardizem and has been resumed on Xarelto after his biopsy couple of days ago. Mr. Tapia is medically stable for discharged to home. He will be following up with [facility] on Monday for planned radiation. He will also be continuing on his diltiazem, Eliquis, and Xarelto for his atrial fibrillation. He does have a history of daily alcohol drinking and I would continue him on his folic acid and thiamine. DISPOSITION: Home. DIET: Consistent carbohydrate. ACTIVITY: As tolerated. FOLLOW-UP PLANS: 1. Please follow up on Monday with [facility] for planned radiation treatment. 2. Please follow up with Dr. Hernandez in the next 1 to 2 weeks regarding this acute hospitalization. TIME SPENT: Approximately 60 minutes was spent in the discharge of this patient , more than half that time was spent with him at the bedside reviewing the events leading up this hospitalization, performing the physical examination, and reviewing the plan of care. OMAYRA CRAFT NP [id number]/[facility] #: [id number] A.O. FOX MEMORIAL HOSPITALSammie
--- NOTE | 2017-06-05 09:20 | RAD ---
Indication: Superior vena cava syndrome with right upper lobe mass. Informed consent was obtained from the patient. Using usual aseptic technique and lidocaine as a local anesthetic, an 18-gauge needle was placed just adjacent to the right upper lobe mass under CT guidance. Three passes were made with a 22-gauge inner fine needle. Autologous blood patch was given during withdraw of the 18-gauge needle. Postbiopsy scan shows no evidence of pneumothorax. IMPRESSION: Successful CT guided localization and fine-needle aspiration of a right upper lobe mass. No pneumothorax is noted after biopsy.
== END 2017-06-03 14:00 | disposition home or self-care (01) | DRG 299 ==
LOC: ED 13:01 → MEDTELE 17:47 → OBSVTOIN 05-31 14:00
PROVIDERS: ADMIT Internal Medicine; ATTEND Internal Medicine
PROC: 0BBC3ZX Excision of Right Upper Lung Lobe, Percutaneous Approach, Diagnostic (ICD-10-PCS; principal; 2017-06-02)
DX: I82.210 Acute embolism and thrombosis of superior vena cava (principal); Q25.6 Stenosis of pulmonary artery; J90 Pleural effusion, not elsewhere classified; C34.11 Malignant neoplasm of upper lobe, right bronchus or lung; I31.3 Pericardial effusion (noninflammatory); I48.91 Unspecified atrial fibrillation; I48.92 Unspecified atrial flutter; I87.1 Compression of vein; Y90.9 Presence of alcohol in blood, level not specified; R59.0 Localized enlarged lymph nodes; F10.20 Alcohol dependence, uncomplicated; F41.9 Anxiety disorder, unspecified; R09.02 Hypoxemia; J44.9 Chronic obstructive pulmonary disease, unspecified; E11.9 Type 2 diabetes mellitus without complications; F40.240 Claustrophobia; R51 Headache; Z80.1 Family history of malignant neoplasm of trachea, bronchus and lung; Z83.71 Family history of colonic polyps; Z87.891 Personal history of nicotine dependence; Z79.84 Long term (current) use of oral hypoglycemic drugs
CPT/HCPCS: 10022; 36415; 70491; 71045; 71260; 74177; 76536; 77012; 77014; 80053; 82947; 83605; 83735; 84484; 85025; 85610; 85730; 88172; 88173; 88177; 88305; 88341; 88342; 88360; 93005; 93306; 99202; 99284; A9270-GY; C8929; G0378; G0463; J0153; J2060; J3010; J3490; Q9967

== ENCOUNTER 2018-01-10 13:16 | Observation (INO) | payer MEDICARE ==
[2018-01-10] MEDS ORDERED: Prochlorperazine TAB* 10 MG PO PRN (14:14)
[2018-01-10] MEDS ORDERED: LORazepam TAB(*) 0.5 MG PO PRN (14:14)
[2018-01-10] MEDS ORDERED: Ondansetron TAB* 4 MG PO PRN (14:14)
[2018-01-10] MEDS ORDERED: Enoxaparin(*) 30 MG/0.3 ML SYR SUBCUT SCH (15:00)
[2018-01-10] MEDS ORDERED: Dexamethasone IV* 8 MG in NS 0.9% 50 ML* 50 ML IVPB ONE (15:23)
[2018-01-10] MEDS ORDERED: Ondansetron INJ* 2 MG/ML VIAL IV PRN (15:23)
[2018-01-10] MEDS ORDERED: Gadoteridol* (CONTRAST) 279.3 MG/ML 10 ML IV ONE (16:25)
--- NOTE | 2018-01-10 16:53 | RAD ---
HISTORY: AMS, lung cancer COMPARISONS: August 14, 2017 TECHNIQUE: The following sequences were obtained of the head: Sagittal T1-weighted images, axial T2-weighted images, axial FLAIR images, axial susceptibility weighted images, axial T1-weighted images. Additionally, axial diffusion-weighted images were obtained with calculated apparent diffusion coefficients. Additionally, sagittal, coronal, and axial T1-weighted images were obtained after contrast enhancement with a gadolinium-based intravenous contrast agent. FINDINGS: HEMORRHAGE/INFARCT: There is no hemorrhage or acute infarct. MASSES/SHIFT: There is no mass or shift. EXTRA-AXIAL SPACES/MENINGES: There are no extra-axial fluid collections. SULCI AND VENTRICLES: There is mild diffuse and proportional enlargement of the sulci and ventricles. CEREBRUM: There are few, scattered, small foci of elevated T2/STIR signal in the periventricular and subcortical white matter. These are stable. There is no associated abnormal enhancement. BRAINSTEM: There are no focal parenchymal abnormalities. CEREBELLUM: There are no focal parenchymal abnormalities. The cerebellar tonsils are normal in size and position. SELLA: The sella is normal. PINEAL: The pineal region is clear. CP ANGLE/TEMPORAL BONES: The labyrinthine structures are grossly normal. VESSELS: Normal flow-voids are noted within the visualized vertebral vasculature. DIFFUSION ABNORMALITIES: There are no diffusion abnormalities. PARANASAL SINUSES/MASTOIDS: The paranasal sinuses are clear. ORBITS: The orbits are unremarkable. BONES AND SOFT TISSUE: No bone or soft tissue abnormalities are noted. OTHER: There is no abnormal enhancement. IMPRESSION: STABLE SCATTERED NONSPECIFIC WHITE MATTER CHANGES. NO ABNORMAL ENHANCEMENT, VASOGENIC EDEMA, OR SPACE-OCCUPYING LESION TO SUGGEST METASTATIC DISEASE TO THE BRAIN.
[2018-01-10] MEDS ORDERED: Rivaroxaban TAB(*) 20 MG TAB PO SCH (17:00)
[2018-01-10] MEDS: methylPREDNISolone SOD 40 MG* 1 ML VIAL IV SCH (17:21)
[2018-01-10] MEDS: Insulin REGULAR(*) 1 UNITS UNIT SUBCUT SCH (18:14)
[2018-01-10] MEDS: Mometasone/Formoter 200/5 MDI INH SCH (19:51)
[2018-01-10] MEDS: NS 0.9% 1000 ML* 1,000 ML IV SCH (21:33)
[2018-01-10] MEDS ORDERED: Insulin REGULAR(*) 1 UNITS UNIT SUBCUT ONE (22:30)
[2018-01-10] MEDS ORDERED: Insulin REGULAR(*) 1 UNITS UNIT ONE (22:37)
[2018-01-11] MEDS: methylPREDNISolone SOD 40 MG* 1 ML VIAL IV SCH (03:34)
[2018-01-11] MEDS: NS 0.9% 1000 ML* 1,000 ML IV SCH (04:22)
[2018-01-11 07:52] LABS: Hematocrit 23 % (42-52); Mean Corpuscular HGB Conc 35 g/dl (31-36); Mean Corpuscular Hemoglobin 29 pg (27-31); Mean Corpuscular Volume 84 fL (80-94); Mean Platelet Volume 6.9 um3 (7.4-10.4); Platelet Count 167 10^3/ul (150-450); Red Blood Count 2.76 10^6/ul (4.00-5.40); Red Cell Distribution Width 17 % (10.5-15); White Blood Count 2.9 10^3/ul (3.5-10.8)
[2018-01-11] MEDS: Mometasone/Formoter 200/5 MDI INH SCH (07:52)
[2018-01-11 07:59] VITALS: BP 122/63
[2018-01-11 07:59] LABS: ABS Basophils 0 10^3/ul (0-0.2); ABS Eosinophils 0 10^3/ul (0-0.6); ABS Lymphocytes 0.1 10^3/ul (1.0-4.8); ABS Monocytes 0.1 10^3/ul (0-0.8); ABS Neutrophils 2.7 10^3/ul (1.5-7.7); ABS Nucleated RBC 0 10^3/ul; Eosinophil % 0.1 % (0-6); Lymphocyte % 4.6 % (25-47); Nucleated Red Blood Cells % 0.2
[2018-01-11 08:06] LABS: EGFR Non-African American 79.1 (>60)
[2018-01-11] MEDS: Insulin REGULAR(*) 1 UNITS UNIT SUBCUT SCH ×2 (08:56→12:35)
[2018-01-11] MEDS ORDERED: Folic Acid TAB* 1 MG PO SCH (09:00)
[2018-01-11] MEDS ORDERED: Diltiazem CD CAP* 120 MG PO SCH (09:00)
--- NOTE | 2018-01-11 11:58 | RAD ---
INDICATION: RIGHT upper lobe lung carcinoma. Shortness of breath. Radiation pneumonitis. Acute renal failure. Dehydration. COMPARISON: November 15, 2017 CT TECHNIQUE: Multidetector CT images were obtained from the lung apices to the upper abdomen. Evaluation of the viscera is limited without IV contrast. REPORT: 1.7 x 2.6 cm spiculated mass at the apical segment of the RIGHT upper lobe without change. Moderate dependent RIGHT pleural effusion with proportional atelectasis without change. RIGHT paramediastinal mid to upper lung zone coarse interstitial markings and consolidation without significant change. Mild alveolar and interstitial consolidation at the superior segment of the LEFT lower lobe new compared with the prior exam. Negative for LEFT pleural effusion. 1.2 cm short axis RIGHT paratracheal lymph node without change. Similar size subcarinal lymph node without change. Negative for cardiomegaly. Physiologic range small volume of pericardial fluid. Unremarkable Limited images through the upper abdomen. Negative for suspicious osseous lesions. Healed fracture of the RIGHT clavicle noted. IMPRESSION: #. No significant change nor and interstitial consolidation at the RIGHT lung with associated bronchiectasis most suspicious for post radiation pneumonitis. Unchanged moderate dependent RIGHT pleural effusion. #. New pulmonary consolidation at the superior segment of the LEFT lower lobe suspicious for pneumonia. #. Unchanged mediastinal lymphadenopathy.
--- NOTE | 2018-01-11 15:00 | DS ---
- Discharge Summary BRIEF OBV DISCHARGE SUMMARY ADMIT DATE: 01/10/18 DISCHARGE DATE: 01/11/18 DISCHARGE DIAGNOSIS: 1. prerenal azotemia/acute renal failure 2. dehdyration from poor PO intake 3. hypovolemic hyponatremia 4. AMS, related to above 5. radiation pneumonitis DISCHARGE MEDICATIONS Home Medications Medication Instructions Recorded Confirmed Type metFORMIN* [Glucophage 500 MG TAB 500 mg PO BID 05/30/17 01/10/18 History *] Diltiazem CD CAP* [Cardizem CD 120 mg PO DAILY #30 cap.cd 06/03/17 01/10/18 Rx CAP*] Folic Acid TAB* [Folvite TAB*] 1 mg PO DAILY #30 tab 06/03/17 01/10/18 Rx LORazepam [Ativan 0.5 MG TAB] 0.5 mg PO TID PRN #30 tablet MDD 08/10/17 Rx 1.5mg Codeine Phosphate/Guaifenesin 5 ml PO BID PRN 01/10/18 01/10/18 History [Guaifen-Codeine 200-20 mg/10Ml] Fluticasone-Salmeterol 250-50* 1 inh INH BID 01/10/18 01/10/18 History [Advair Diskus 250-50*] Ondansetron TAB* [Zofran 4 MG Tab*] 4 mg PO Q6H PRN 01/10/18 01/10/18 History Prochlorperazine TAB* [Compazine 10 mg PO Q6H PRN 01/10/18 01/10/18 History Tab*] Sulfamethox/Trimethoprim DS* 1 tab PO SEE INSTRUCTIONS #30 tab 01/11/18 Rx [Bactrim DS 800/160 TAB*] predniSONE TAB* [Deltasone 20 MG 60 mg PO DAILY #90 tab 01/11/18 Rx TAB*] HOLD XERALTO UNTIL AFTER THORACENTESIS HOSPITAL COURSE: See full admit H+P, briefly admitted for AMS, dehydration, ARF and hyponatremia. He improved markedly over night with hydration and IV steroids. Brain MRI negative for H[employer] WORK[employer] mets and his mental status cleared. Repeat chest CT showed stable radiation pneumonitis and a moderate right sided effusion. There is question of a left sided pneumonia, though on my view it is a relatively small infiltrated that looks to be more consistent with atelectasis. He has had no fevers. He will get an outpatient thoracentesis with Dr. Carroll tomorrow (will hold his xeralto tonight). He will go back on high dose steroids for his radiation pneumonitis, and I will refer him back to Dr. Chen. He will need to hold immunotherapy while on this. Given prolonged steroids I will start him on PCP prophylaxis. I stressed to Trino and his family at length his need to call with progressive respiratory distress as this can be fatal. I have also discouraged his son from buying oxygen on [employer] as he does not qualify for it and this can actually be dangerous and suppress respiratory drive. He will be seen back in the office in 2 weeks prior to any taper of steroids.
== END 2018-01-11 13:25 | disposition home or self-care (01) ==
LOC: MED 14:25 → INTOOBSV 14:25
PROVIDERS: ADMIT Internal Medicine Hematology & Oncology; ATTEND Internal Medicine Hematology & Oncology
DX: N17.9 Acute kidney failure, unspecified (principal); R39.2 Extrarenal uremia; E86.0 Dehydration; E87.1 Hypo-osmolality and hyponatremia; R41.82 Altered mental status, unspecified; J70.0 Acute pulmonary manifestations due to radiation; Z23 Encounter for immunization; C34.90 Malignant neoplasm of unspecified part of unspecified bronchus or lung; C79.9 Secondary malignant neoplasm of unspecified site; J44.9 Chronic obstructive pulmonary disease, unspecified; Z79.01 Long term (current) use of anticoagulants; E11.9 Type 2 diabetes mellitus without complications; Z79.899 Other long term (current) drug therapy; Z87.891 Personal history of nicotine dependence; Z79.84 Long term (current) use of oral hypoglycemic drugs
CPT/HCPCS: 36415; 36430; 70553; 71250; 80053; 83605; 85025; 86850; 86900; 86901; 86922; 90471; 90686; 94640; 96361; 96374; 96376; 99220; A9270-GY; A9579; G0008; G0378; J1100; J2920; P9040

== ENCOUNTER → 2018-01-12 09:04 | Day surgery (SDC) | payer MEDICARE ==
[~2018-01-12 09:04] MED LIST: Bacitracin OINTMENT* 0.5% 0.5 oz TUBE ONE; Lidocaine 1% INJ* 10 MG/ML 30 ML SDV ONE
--- NOTE | 2018-01-12 12:05 | RAD ---
Indication: Status post right thoracentesis. Single frontal view of the chest performed at 1132 hours was reviewed. Comparison is made with previous exam dated October 12, 2017. No pneumothorax is noted after right thoracentesis. Progressive infiltrate/mass is noted in the right upper lobe. Left lung field is clear. IMPRESSION: NO PNEUMOTHORAX AFTER THORACENTESIS.
--- NOTE | 2018-01-12 14:27 | BRIEFOPN ---
Brief Operative Note - Surgery Procedures: Procedures CLOSED ENDOSCOPIC BIOPSY OF LARGE INTESTINE (04/13/12) EXCISION OF RIGHT UPPER LUNG LOBE, PERC APPROACH, DIAGN (05/31/17) 01/12/18 Op Note Pre-op dx: right pleural effusion Post-op dx: same Procedure: right thoracentesis Surgeon: Glen Asst: none Anesth: local EBL: <5 cc Complications: none Pt. tolerated procedure well and was transferred to in a stable condition. CLFoster
--- NOTE | 2018-01-13 01:03 | OP ---
CC: [facility]; [facility]; Dr. Harsha Hernandez OPERATIVE SUMMARY: DATE OF OPERATION: 01/12/18. DATE OF : 50. SURGEON: Cyndie Carroll MD. EXERCISE PHYSIOLOGIST: There was no assistance for this case. PRE-OP DIAGNOSIS: Right pleural effusion. POST-OP DIAGNOSIS: Right pleural effusion. OPERATIVE PROCEDURE: Right thoracentesis. INDICATIONS: The patient is a 67-year-old male with a diagnosis of lung cancer, who has a new pleura l effusion prompted and planned for intervention. DESCRIPTION OF PROCEDURE: He was brought to the procedure room and allowed to sit up, and the right posterior chest was prepped and draped in the usual sterile fashion. After infiltrating with local a nesthetic, a needle with the catheter over it was inserted into the chest cavity, the needle was with drawn as the catheter was advanced, and then approximately 600 cc of yellow clear fluid was withdrawn , and then an antibiotic ointment, Band-Aid was placed over the site, and the catheter withdrawn. He tolerated the procedure well and chest x-ray shows no evidence of pneumothorax. [id number]/[facility] #: [id number]
== END | disposition home or self-care (01) ==
LOC: OR 09:04
PROVIDERS: ATTEND Surgery
DX: J91.0 Malignant pleural effusion (principal); C34.91 Malignant neoplasm of unspecified part of right bronchus or lung; J44.9 Chronic obstructive pulmonary disease, unspecified; R41.82 Altered mental status, unspecified; R06.02 Shortness of breath; E11.9 Type 2 diabetes mellitus without complications; Z79.84 Long term (current) use of oral hypoglycemic drugs; Z87.891 Personal history of nicotine dependence
CPT/HCPCS: 32554; 71045; 88112; 88305; A9270-GY

== ENCOUNTER 2018-02-23 10:50 | Emergency (ER) | payer MEDICARE ==
[2018-02-23] MEDS ORDERED: NS 0.9% 1000 ML** 1,000 ML IV ONE (11:12)
[2018-02-23] MEDS ORDERED: Adenosine* 3 MG/ML VIAL IV PUSH ONE ×2 (11:14)
[2018-02-23 11:33] LABS: Hematocrit 35 % (42-52); Hemoglobin 11.3 g/dl (14.0-18.0); Mean Corpuscular HGB Conc 33 g/dl (31-36); Mean Corpuscular Hemoglobin 30 pg (27-31); Mean Corpuscular Volume 91 fL (80-94); Mean Platelet Volume 7.1 fL (7.4-10.4); Platelet Count 201 10^3/ul (150-450); Red Blood Count 3.81 10^6/ul (4.00-5.40); Red Cell Distribution Width 20 % (10.5-15); White Blood Count 12.5 10^3/ul (3.5-10.8)
[2018-02-23 11:53] LABS: Activated Partial Thrombo Time 18.7 seconds (26.0-36.3); Albumin 4.1 g/dL (3.2-5.2); Albumin/Globulin Ratio 1.6 (1-3); BUN/Creatinine Ratio 24.8 (8-20); Calcium 9.5 mg/dL (8.6-10.3); EGFR African American 67.2 (>60); EGFR Non-African American 55.6 (>60); Globulin 2.5 g/dL (2-4); INR 1.21 (0.77-1.02); Magnesium 2.2 mg/dL (1.9-2.7); Total Bilirubin 0.5 mg/dL (0.2-1.0); Total Protein 6.6 g/dL (6.4-8.9)
[2018-02-23 11:54] LABS: Potassium 5.1 mmol/L (3.5-5.0)
[2018-02-23 11:58] LABS: CKMB ng/mL 2.4 ng/mL (0.6-6.3)
--- NOTE | 2018-02-23 12:01 | ED ---
Shortness of Breath - HPI Summary HPI Summary: A 67 y/o male presents to the ED c/o SOB since 02/22/18. He saw Dr. Valles yesterday who told him to come to the ED because his heart rate was elevated. He denies CP or neck pain. His states that the night of 02/21/2018 the patient fell and was unresponsive, maybe a syncopal episode lasting a couple seconds. The pt is done with chemo and radiation therapy but could not start immunotherapy for lung cancer. He is currently taking Xarelto. - History of Current Complaint Chief Complaint: EDShortnessOfBreath Time Seen by Provider: 02/23/18 10:58 Hx Obtained From: Patient, Family/Trial Court [employer] Onset/Duration: Sudden Onset, Lasting Days, Still Present Associated Signs & Symptoms: Negative - CP - Allergy/Home Medications Allergies/Adverse Reactions: Allergies Allergy/AdvReac Type Severity Reaction Status Date / Time No Known Allergies Allergy Verified 02/23/18 10:56 Home Medications: Home Medications Rivaroxaban TAB(*) [Xarelto 20 mg] 20 mg PO DAILY 02/23/18 [History Confirmed ] Sodium Chloride TAB* 2 gm PO BID 02/23/18 [History Confirmed 02/23/18] Sulfamethox/Trimethoprim DS* [Bactrim DS 800/160 TAB*] 1 tab PO MOWEFR 02/23/18 [History Confirmed 02/23/18] metFORMIN* [Glucophage 1000 MG TAB *] 1,000 mg PO BID 02/23/18 [History Confirmed 02/23/18] predniSONE TAB* [Deltasone 20 MG TAB*] 30 mg PO BID 02/23/18 [History Confirmed 02/23/18] traZODone TAB* [Desyrel TAB*] 50 mg PO BEDTIME 02/23/18 [History Confirmed 02/23] PMH/Surg Hx/FS Hx/Imm Hx Endocrine/Hematology History: Reports: Hx Diabetes Cardiovascular History: Denies: Hx Atrial Fibrillation, Hx Hypertension, Hx Pacemaker/ICD Respiratory History: Reports: Hx Chronic Obstructive Pulmonary Disease (COPD) History: Denies: Hx Dialysis, Hx Renal Disease Sensory History: Reports: Hx Contacts or Glasses Denies: Hx Hearing Aid Opthamlomology History: Reports: Hx Contacts or Glasses Psychiatric History: Denies: Hx Panic Disorder - Cancer History Cancer Type, Location and Year: lung Hx Chemotherapy: Yes Hx Radiation Therapy: Yes - JUST FINISHED 6 WEEK TREATMENT - APPROX 07/17/17 - Surgical History Surgery Procedure, Year, and Place: clavicle repair - Immunization History Date of Tetanus Vaccine: UTD Date of Influenza Vaccine: UTD Infectious Disease History: No Infectious Disease History: Denies: Traveled Outside the [place] in Last 30 Days - Family History Known Family History: Negative: Hypertension, Other - HLD Family History: Father: polyps - Social History Alcohol Use: None Alcohol Amount: 6 pack of beer Substance Use Type: Reports: None Hx Tobacco Use: Yes - quit 10 yrs ago, >50 pk yr history Smoking Status (MU): Never Smoked Tobacco Review of Systems Negative: Chest Pain Positive: Shortness Of Breath Negative: Myalgia - Neck pain Positive: Syncope - maybe for a few seconds, per All Other Systems Reviewed And Are Negative: Yes Physical Exam - Summary Physical Exam Summary: VITAL SIGNS: Reviewed. GENERAL: Patient is a well-developed and nourished MALE who is lying comfortable in the stretcher. Patient is not in any acute respiratory distress. HEAD AND FACE: No signs of trauma. No ecchymosis, hematomas or skull depressions. No sinus tenderness. EYES: PERRLA, EOMI x 2, No injected conjunctiva, no nystagmus. EARS: Hearing grossly intact. Ear canals and tympanic membranes are within normal limits. MOUTH: Oropharynx within normal limits. NECK: Supple, trachea is midline, no adenopathy, no JVD, no carotid bruit, no c- spine tenderness, neck with full ROM. CHEST: Symmetric, no tenderness at palpation LUNGS: Clear to auscultation bilaterally. No wheezing or crackles. CVS: Sinus tachycardia, regular rhythm, S1 and S2 present, no murmurs or gallops appreciated. ABDOMEN: Soft, non-tender. No signs of distention. No rebound no guarding, and no masses palpated. Bowel sounds are normal. EXTREMITIES: FROM in all major joints, no edema, no cyanosis or clubbing. NEURO: Alert and oriented x 3. No acute neurological deficits. Speech is normal and follows commands. SKIN: Dry and warm Triage Information Reviewed: Yes Vital Signs On Initial Exam: Initial Vitals Temp Pulse Resp BP Pulse Ox 98.1 F 168 26 131/96 92 02/23/18 10:51 02/23/18 10:51 02/23/18 10:51 02/23/18 10:51 02/23/18 10:51 Vital Signs Reviewed: Yes Diagnostics - Vital Signs Vital Signs Temp Pulse Resp BP Pulse Ox 02/23/18 11:42 165 21 134/86 100 02/23/18 11:15 15 02/23/18 10:51 98.1 F 168 26 131/96 92 - Laboratory Lab Results: Lab Results 02/23/18 02/23/18 02/23/18 Range/Units 11:22 11:22 11:22 WBC 12.5 H (3.5-10.8) 10^3/ul RBC 3.81 L (4.00-5.40) 10^6/ul Hgb 11.3 L (14.0-18.0) g/dl Hct 35 L (42-52) % MCV 91 (80-94) fL MCH 30 (27-31) pg MCHC 33 (31-36) g/dl RDW 20 H (10.5-15) % Plt Count 201 (150-450) 10^3/ul MPV 7.1 L (7.4-10.4) fL Neut % (Auto) Pending Lymph % (Auto) Pending [place] % (Auto) Pending Eos % (Auto) Pending Baso % (Auto) Pending Absolute Neuts (auto) Pending Absolute Lymphs (auto) Pending Absolute Monos (auto) Pending Absolute Eos (auto) Pending Absolute Basos (auto) Pending Absolute Nucleated RBC Pending Nucleated RBC % Pending INR (Anticoag Therapy) 1.21 H (0.77-1.02) APTT 18.7 L (26.0-36.3) seconds D-Dimer, Quantitative < 200 (Less Than 230) ng/mL Sodium 134 L (135-145) mmol/L Potassium Pending Chloride 100 L (101-111) mmol/L Carbon Dioxide 18 L (22-32) mmol/L Anion Gap Pending BUN 32 H (6-24) mg/dL Creatinine 1.29 H (0.67-1.17) mg/dL Est GFR ( Amer) 67.2 (>60) Est GFR (Non-Af Amer) 55.6 (>60) BUN/Creatinine Ratio 24.8 H (8-20) Glucose 452 H (70-100) mg/dL Calcium 9.5 (8.6-10.3) mg/dL Magnesium 2.2 (1.9-2.7) mg/dL Total Bilirubin 0.50 (0.2-1.0) mg/dL AST 11 L (13-39) U/L ALT 17 (7-52) U/L Alkaline Phosphatase 96 (34-104) U/L Total Creatine Kinase 29 (10-223) U/L CK-MB (CK-2) Pending Troponin I Pending Total Protein 6.6 (6.4-8.9) g/dL Albumin 4.1 (3.2-5.2) g/dL Globulin 2.5 (2-4) g/dL Albumin/Globulin Ratio 1.6 (1-3) TSH Pending Result Diagrams: 02/23/18 11:22 02/23/18 11:22 Lab Statement: Any lab studies that have been ordered have been reviewed, and results considered in the medical decision making process. - Radiology CXR Radiology Interpretation Completed By: Radiologist - STABLE FIBROTIC CHANGES OF THE RIGHT UPPER LOBE. ED physician has reviewed this report. - EKG 11:03 Cardiac Rate: Other Rate - SVT: 166 bpm EKG Rhythm: SVT Summary of EKG Findings: QTc an QT are WNL 13:33 Cardiac Rate: NL - 98 bpm EKG Rhythm: Sinus Rhythm Summary of EKG Findings: No ST elevations. Confirmed by Dr. Smith. Course/Dx - Course Assessment/Plan: Patient is a 67 y/o male presents to the ED c/o SOB since . He saw Dr. Valles yesterday who told him to come to the ED because his heart rate was elevated. He denies CP or neck pain. His states that the night of 02/21/2018 the patient fell and was unresponsive, maybe a syncopal episode lasting a couple seconds. The pt is done with chemo and radiation therapy but could not start immunotherapy for lung cancer. He is currently taking Xarelto. EKG shows SVT 166 bpm. Initially the patient was placed in a quality assurance monitor final, IV access was obtained and the patient was given adenosine 6 milligrams without any success or change in his rhythm. Therefore the patient was given another dose of adenosine 12 mg and we were able to slow down the rate and he shows that the patient has a atrial flutter. Therefore, I discuss my physical exam and findings with Dr. Smith from cardiology who recommends initially amiodarone however he change his mind and he recommended amlodipine. Dr. Smith came down to see the patient himself and he thinks that he would benefit from cardioversion. Therefore, Dr. Smith is a arranging for cardioversion. Blood work shows a wbcs of 12.9, INR 1.21 PTT of 18.7 d-dimer is less than 200. Sodium 134, potassium 5.5, BUN is 32 and creatinine 1.29. Therefore the patient was given IV fluids. Lactic acid is 6.2 and troponin is 0.04. The lactic acid level and troponin are elevated since the patient has been in SVT/atrial flutter since yesterday. Dr. Smith successively cardioverted and now the patient is a normal sinus rhythm. He recommends discharged home with Cardizem CD 180 mg a day. Patient will follow-up with and Dr. Smith at his office. In the ED course the patient was given 3 L of IV fluids, the patient was given insulin for the hyperglycemia and the repeat fingerstick is 213. Lactic acid possibly increased due to the hyperglycemia and an understanding of the SVT. However the repeat lactic acid is only 4.8. The patient continues to have no complaints right now, no fevers, no chills no signs of infection. At this point the patient is hemodynamically stable alert and oriented 3. Post cardioversion EKG shows a normal sinus rhythm at [address] elevation. EKG read by Dr. Smith. Dr. Smith also reviewed blood work. I discussed all the findings and test results with the patient. Patient was instructed to return to the emergency room immediately if any of the symptoms return or worsens. Plan of care was discussed with the patient and understands and agrees. All questions were answered at patient satisfaction. There were no further complaints or concerns. Lung exam before discharge: CTA B /L. Good air exchange. No wheezing or crackles heard. CVS: S1 and S2 present. No murmurs appreciated. Patient is alert and oriented x 3. Patient is hemodynamically stable. Patient will be discharged home with follow up PCP in the next 2-3 days. - Diagnoses Differential Diagnosis/HQI/PQRI: Positive: CHF, NH, Other - SVT, atrial fibrillation, atrial flutter, V. tach. Provider Diagnoses: Atrial flutter - Physician Notifications Discussed Care of Patient With: Quinn Smith Time Discussed With Above Provider: 11:50 Instructed by Provider To: Other - Load patient with amniotarone and drip, he suggests admit At 12:30- He suggests Cardizem for DC. At 1:25 he saw the patient in the ED and cardioverted him. Discharge - Sign-Out/Discharge Documenting (check all that apply): Patient Departure - DC - Discharge Plan Condition: Stable Disposition: HOME Prescriptions: Diltiazem CD CAP* [Cardizem CD CAP*] 180 mg PO DAILY #15 cap.cd Patient Education Materials: Atrial Flutter (ED) Referrals: Harsha Hernandez MD [Primary Care Provider] - (3 days) Additional Instructions: Return to the Emergency department if you experience any changing or worsening symptoms. - Billing Disposition and Condition Condition: STABLE Disposition: Home - Attestation Statements Document Initiated by Scribe: Yes Documenting Scribe: Celestine Knight Provider For Whom Scribe is Documenting (Include Credential): Khoa Slater MD Scribe Attestation: I, Celestine Knight scribed for Khoa Slater MD on 02/24/18 at 0832. Scribe Documentation Reviewed: Yes Provider Attestation: The documentation as recorded by the Celestine berry accurately reflects the service I personally performed and the decisions made by me, Khoa Slater MD Attestations User Type: Provider with Scribe Provider Attestation: The documentation recorded by the scribe accurately reflects the service I personally performed and the decisions made by me.
[2018-02-23 12:03] LABS: Troponin I 0.04 ng/mL (<0.04)
[2018-02-23 12:14] LABS: TSH (Thyroid Stimulating Horm) 1.11 mcIU/mL (0.34-5.60)
[2018-02-23] MEDS ORDERED: Amiodarone 150 MG IVPREMIX* 150 MG/100 ML BAG IV ONE (12:14)
[2018-02-23] MEDS ORDERED: Amiodarone 360 MG IVPREMIX* 360 MG/200 ML BAG IV ONE (12:14)
[2018-02-23 12:18] LABS: Lymphocytes % 3 % (25-47); Metamyelocytes % 2 % (0-2); Monocytes % 3 % (0-7); Myelocytes % 2 % (0-1); Neutrophil % 89 % (38-83)
[2018-02-23 12:19] LABS: Immature Granulocytes 5 % (0-9)
[2018-02-23] MEDS ORDERED: Diltiazem IV* 5 MG/ML 5 ML VIAL (for loading dose/IV Push) (25 MG) IV SLOW PU ONE (12:30)
[2018-02-23] MEDS ORDERED: fentaNYL* 50 MCG/ML 2 ML VIAL (100 MCG VIAL) ONE (12:46)
[2018-02-23] MEDS ORDERED: Naloxone* 0.4 MG/ML 1 ML VIAL ONE (12:47)
[2018-02-23] MEDS ORDERED: Midazolam* 1 MG/ML 10 ML VIAL (10 MG) ONE (12:47)
[2018-02-23] MEDS ORDERED: Flumazenil* 0.1 MG/ML 5 ML MDV ONE (12:47)
[2018-02-23] MEDS ORDERED: Insulin REGULAR(*) 1 UNITS UNIT IV PUSH ONE (14:10)
[2018-02-23] MEDS: NS 0.9% 1000 ML** 2,000 ML IV ONE (14:28)
[2018-02-23 16:51] VITALS: BP 111/62
--- NOTE | 2018-02-23 21:33 | CONS ---
CC: Dr. Marina Valles; Dr. Harsha Hernandez CARDIOLOGY CONSULTATION: DATE OF CONSULT: 02/23/18 REFERRING PHYSICIAN: Dr. Slater. REASON FOR CARDIOLOGY CONSULTATION: Rapid atrial flutter. HISTORY OF PRESENT ILLNESS: I was kindly asked to see this patient by Dr. Slater for cardiology consultation regarding rapid atrial flutter. The patient does not have palpitations, but states for the past week or so he has been short of breath. Apparently, at his oncologist's office yesterday, he was noted to be tachycardic with a pulse of 160 BPM, but refused ER evaluation. Since being home, he has been progressively short of breath and so came to the emergency room with a rapid heart rate. Again, the patient denies palpitations. He also denies chest pain. PAST MEDICAL HISTORY: Significant for lung cancer, he is currently in remission after receiving radiation and chemotherapy. He was intolerant to immunotherapy, which caused pneumonitis. He has a history of paroxysmal atrial fibrillation diagnosed in May 2017 at the time of his lung cancer diagnosis. He has continued his Xarelto throughout that time; only olding it once at the end of December 2017 as directed for a thoracentesis. He also has a history of COPD, diabetes. OUTPATIENT MEDICATIONS: 1. Albuterol p.r.n. 2. Diltiazem CD 120 mg once a day. 3. Xarelto 20 mg once a day. 4. Insulin as directed. 5. Ativan p.r.n. 6. Solu-Medrol as directed. ALLERGIES: To medications are IMMUNOTHERAPY for his lung cancer caused him pneumonitis. He denies shrimp, sea food, or dye allergy. FAMILY HISTORY: His father had a history of a pacemaker. No family history of diabetes or stroke. There is a family history of cancer. Of note, the patient is present with his sister and mother in the emergency room during my evaluation. SOCIAL HISTORY: The patient smokes cigarettes 1 pack per day for 40 years and quit 12 years ago. He does not abuse alcohol. No use of illicit drugs. He has been for 44 years. 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 He is a 2-year college graduate. He does not do regular exercise and notes that he , in fact, gets quite short of breath with walking 50 feet. REVIEW OF SYSTEMS: The patient denies a history of stroke. He does have a history of lung cancer as described above. Denies renal calculi, cholelithiasis. He has COPD. Denies asthma, pneumonia, tuberculosis. Sleep apnea, on home oxygen use. He has diabetes. He has hypertension. Denies prior DC, congestive heart failure, cardiac surgery, cardiac murmurs. He denies palpitations. He has not had a pacemaker placed. Denies psychiatric illnesses , lupus, psoriasis, seizures, Parkinson disease, myasthenia gravis, thyroid disorders, liver disorders, kidney disorders, pulmonary emboli, deep venous thrombosis, peripheral arterial disease, claudication symptoms, peripheral edema. He does occasionally have heartburn. All the review of systems are negative x14 except as described above. PHYSICAL EXAM: Height 5 feet 7 inches, weight 135 pounds. Temperature 98.1 degrees Fahrenheit, pulse is 168, blood pressure 134/86, O2 saturation 100%. On general exam, he is a pleasant gentleman in no acute distress. HEENT shows that he has a right healing ecchymosis above his right eye involving the temporal region. The patient tripped and fell the other day, but did not have true syncope when he hit his head. This is apparently unusual for him. Neck veins are nondistended. There are no carotid bruits. Visible skin warm and perfused. Affect appropriate. He appears oriented. No significant kyphoscoliosis on back exam. Lungs are clear to auscultation. No wheezes, no rales. Cardiac Exam: S1, S2. Regular rate, tachycardic. No significant murmurs, rubs, or gallops. PMI is nondisplaced. Abdomen: Soft, nondistended, appears benign. Extremities: Without significant edema. Pulses appear grossly intact. DIAGNOSTIC STUDIES/LAB DATA: The patient had 12-lead EKG completed, 05/31/17, which showed hyperdynamic left ventricular ejection fraction of 60% to 65% with mild tricuspid regurgitation and normal cardiac chamber sizes. 12-lead EKG reviewed today, which shows rapid atrial flutter at 166 beats per minute. The patient had received IV adenosine in the emergency room and that shows clear flutter waves. White blood cell count 12.5, hematocrit 35, platelet count 201. INR 1.21. Sodium 134, potassium 5.1, chloride 100, bicarbonate 18, BUN 32, creatinine 1.29 and his creatinine was 1.24 on 02/15/18. TSH 1.11. ALT 17. BNP 451. Troponin 0.04. Chest x-ray report per Radiology states stable fibrotic changes of the right upper lobe. IMPRESSION: Mr. Tapia is a 67-year-old gentleman with a history of lung cancer , currently in remission, with paroxysmal atrial fibrillation, now with recurrence of rapid atrial flutter for presumably the past week. He has been compliant with his Xarelto anticoagulant as noted above. Feel mild troponinemia due to atrial tachyarrhythmia rather than ischemic heart disease.I have discussed this in detail with the patient. We are recommending him for cardioversion with which the patient and his family are in agreement. PLAN/RECOMMENDATIONS: 1. Plan for cardioversion in the emergency room now for his rapid atrial flutter. 2. Assuming successful cardioversion to sinus rhythm, plan discharge with increased Cardizem to 180 mg today and continued oral anticoagulant. 3. The patient will continue cardiac care with myself as an outpatient. 4. Other management as per emergency medicine and oncology service. I have discussed the case with Dr. Slater of . Dear Dr. Slater, many thanks for this kind cardiovascular consultation opportunity. Please do not hesitate to contact me if you have any questions or concerns regarding the patient's cardiovascular consultative care. [id number]/[facility] #: [id number] ASAF
--- NOTE | 2018-02-24 04:14 | PRO ---
CC: Dr. Harsha Hernandez; Dr. Marina Valles CARDIOVERSION REPORT: DATE OF SERVICE: 02/23/18 SURGEON: Quinn Smith MD REFERRAL PHYSICIAN: Dr. Slater. PROCEDURE PERFORMED: Cardioversion for rapid atrial flutter. Please see also cardiology consultation dictated earlier today. INDICATION: This is a pleasant 67-year-old gentleman with a history of paroxysmal atrial fibrillation with 1 week of shortness of breath, found to have rapid atrial flutter in the emergency room today. He is chronically on Xarelto and Cardizem CD 120 mg once a day. I discussed this in detail with the patient and recommended him for a cardioversion in the emergency room as his symptoms were significant shortness of breath. We reviewed that benefits would be more definite resumption of normal sinus rhythm for his symptomatic rapid atrial flutter which is causing him shortness of breath, alternatives being medical management and the patient had already received adenosine, which did reveal some flutter waves, but unsurprisingly did not convert him. The patient was not interested in further medical therapy such as Cardizem drip as the next step, and he was in favor of a cardioversion. We then reviewed all the risks and the patient is aware that this is not an all inclusive list as I cannot anticipate all risks in all patients, but the litany of risks include the following; over sedation from conscious sedation, risk of aspiration pneumonia from regurgitation of stomach contents and we had confirmed that the patient had not eaten anything since he had a bowl of oatmeal almost 6 hours prior to this procedure, risk of induction of cardiac dysrhythmias including bradyarrhythmia requiring pacemaker placement and/or tachyarrhythmia, risk of , risk of stroke, although again which will be minimized as patient confirms compliance with therapeutic anticoagulation with Xarelto, since May 2017, having only held the Xarelto one day as instructed for thoracentesis in last December 2017 as directed and risk of chest wall abrasion. The patient, his and his sister were given an opportunity to ask questions with all answered and at the conclusion of our discussion, the patient stated in a clear, competent, and coherent fashion, that he wished to go forward with the cardioversion procedure. DESCRIPTION OF PROCEDURE: After informed written consent was obtained from the patient, the appropriate time-out procedure was performed with appropriate identification of patient, procedure, physician identification, and there were no safety concerns noted by myself nor the staff. Handsfree patches were placed in the right anterior, left posterior position. He received a total of 4 mg of Versed and 50 mcg of fentanyl, utilizing titrated concentration with good effect. He received 1 synchronized cardioversion with 100 joules of biphasic energy with successful resumption of normal sinus rhythm from rapid atrial flutter. The patient is in stable condition post procedure. EKG confirms normal sinus rhythm. IMPRESSION: Successful resumption of normal sinus rhythm from rapid atrial flutter. RECOMMENDATIONS: 1. Once the patient is recovered from conscious sedation, I feel he may be able to be discharged from the emergency room with his and sister and would send him home on increased dose of Cardizem CD 180 mg once a day (from 120 mg po qday) as well as continued Xarelto. 2. The patient will follow up with myself in 1 to 2 months for regular cardiology followup. 3. Further management as per the emergency medicine and oncology service. Dr. Slater, many thanks for this kind cardiovascular consultation opportunity. Please do not hesitate to contact me if you have any questions or concerns regarding the patient's cardiovascular consultative care. [id number]/[facility] #: [id number] MTDD
== END 2018-02-23 16:51 | disposition home or self-care (01) ==
LOC: ED 10:50
DX: I48.92 Unspecified atrial flutter (principal); E11.9 Type 2 diabetes mellitus without complications; J44.9 Chronic obstructive pulmonary disease, unspecified; Z87.891 Personal history of nicotine dependence; C34.90 Malignant neoplasm of unspecified part of unspecified bronchus or lung
CPT/HCPCS: 36415; 71045; 80053; 82550; 82553; 83605; 83735; 83880; 84443; 84484; 85025; 85379; 85610; 85730; 93005; 99284; J0153; J2250; J2310; J3010

== ENCOUNTER → 2018-04-11 11:01 | Day surgery (SDC) | payer MEDICARE ==
[2018-04-11 11:31] VITALS: BP 115/70
[2018-04-11 13:32] LABS: Body Fluid Source Pleural Fluid
[2018-04-11 14:03] LABS: Body Fluid Mono 10 %
--- NOTE | 2018-04-11 15:17 | PRO ---
THORACENTESIS REPORT: DATE OF PROCEDURE: 04/11/18 PROCEDURE PERFORMED: Ultrasound-guided thoracentesis on the right side. PREPROCEDURAL DIAGNOSIS: Right pleural effusion, shortness of breath. ANESTHESIA: Local anesthesia with 1% lidocaine 5 cc. DESCRIPTION OF PROCEDURE: Informed consent was obtained from the patient prior to the procedure after all the risks were thoroughly explained including risk of pneumothorax . The patient was sitting up and leaning forward. A portable ultrasound was utilized at bed site. Appropriate time-out was performed and agreed on by the attending staff prior to the procedure. A CareFusion 8-Surinamese thoracentesis catheter was utilized. All strict aseptic precautions and barrier techniques were used. Area was then cleaned with chlorhexidine. Sterile drape was placed. 1% lidocaine was injected subcutaneously intradermally down into the pleural space taking precautions. A #11 scalpel blade was utilized to make stab incision. A CareFusion 8-Sur[place]amese thoracentesis catheter was then inserted under manual suction taking precautions. Catheter was left in place and needle was removed. 650 mL of dark yellow pleural fluid was removed under manual suction. No further fluid was obtained and catheter was removed. Sterile dressing was placed on the site. A post-procedure chest x -ray was ordered to rule out pneumothorax, which is pending at this time. Specimen was sent into the lab for biochemical, cytological and hematological examination. [id number]/[facility] #: [id number] [facility]PITALSammie
[2018-04-12 11:40] LABS: Lactate Dehydrogenase, BF 135 U/L
== END | disposition home or self-care (01) ==
LOC: OR 11:01
PROVIDERS: ATTEND Internal Medicine
DX: J90 Pleural effusion, not elsewhere classified (principal); R06.02 Shortness of breath; C34.90 Malignant neoplasm of unspecified part of unspecified bronchus or lung; J44.9 Chronic obstructive pulmonary disease, unspecified; Z87.891 Personal history of nicotine dependence; E11.9 Type 2 diabetes mellitus without complications; Z79.84 Long term (current) use of oral hypoglycemic drugs; I48.91 Unspecified atrial fibrillation
CPT/HCPCS: 32554; 36415; 71045; 76604; 82945; 83615; 83986; 84157; 87070; 87205; 88112; 88305; 89051

== ENCOUNTER → 2018-07-06 11:12 | Day surgery (SDC) | payer MEDICARE ==
--- NOTE | 2018-07-06 13:53 | PRO ---
THORACENTESIS REPORT: DATE OF PROCEDURE: 07/06/18 PROCEDURE PERFORMED: Ultrasound-guided thoracentesis on the right side. PREPROCEDURAL DIAGNOSIS: Moderate right pleural effusion. INDICATION FOR THE PROCEDURE: Symptomatic benefit. ANESTHESIA: Local anesthesia with 1% lidocaine. DESCRIPTION OF PROCEDURE: Informed consent was obtained from the patient prior to the procedure after all the risks and benefits were thoroughly explained. The patient was sitting up and leaning forwards. Appropriate time-out was performed and agreed on by attending staff prior to the procedure. Strict aseptic precautions and barrier techniques were utilized. A portable ultrasound was utilized at bedside to localize moderate amounts of right pleural effusion. Area was disinfected with chlorhexidine. 1% lidocaine was instilled subcutaneously intradermally down into the pleural space taking precautions. #11 scalpel was utilized to make a stab incision. A CareFusion 8- Yi thoracentesis catheter was inserted under manual suction and catheter was left in place and needle removed. 800 mL of blood-stained fluid was drained under manual suction. Small amounts of air was drained towards the end of the procedure. A postprocedure chest x-ray was ordered and is pending at the time of dictation. The patient tolerated the procedure well. His O2 sats improved towards the end of the procedure. [id number]/[facility] #: [id number] ASAF
== END | disposition home or self-care (01) ==
LOC: OR 11:12
PROVIDERS: ATTEND Internal Medicine
DX: J90 Pleural effusion, not elsewhere classified (principal); C34.91 Malignant neoplasm of unspecified part of right bronchus or lung; E11.9 Type 2 diabetes mellitus without complications; Z79.84 Long term (current) use of oral hypoglycemic drugs; Z87.891 Personal history of nicotine dependence; I48.91 Unspecified atrial fibrillation; Z79.01 Long term (current) use of anticoagulants; J44.9 Chronic obstructive pulmonary disease, unspecified
CPT/HCPCS: 32554; 76604; 88112; 88305

== ENCOUNTER → 2018-09-14 09:45 | Day surgery (SDC) | payer MEDICARE ==
[~2018-09-14 09:45] MED LIST changes: -Bacitracin OINTMENT* 0.5% 0.5 oz TUBE ONE; +Buffered Lidocaine 1% SYRIN* 1 ML/SYRINGE INTRADERM ONE; +Dexamethasone IV* 4 MG/ML 1 ML (4 MG) IV SLOW PU ONE; +DiMENhydriNATE IV* 50 MG/ML VIAL IV PUSH PRN; +Famotidine IV* 10 MG/ML 2 ML (20 mg) IV ONE; +Lactated Ringers 1000 ML Bag* 1,000 ML IV SCH; +Levalbuterol 0.63MG/3ML NEB* UNIT OF USE INH ONE; -Lidocaine 1% INJ* 10 MG/ML 30 ML SDV ONE; +Morphine 4 MG/ML VIAL (1 ml) 4 MG/ML VIAL IV PRN; +Naloxone* 0.4 MG/ML 1 ML VIAL IV PRN; +Ondansetron TAB* 4 MG PO ONE; +PROCHLORPERAZINE INJ 5 MG/ML 2 ML VIAL IV PRN; +fentaNYL* 50 MCG/ML 2 ML VIAL (100 MCG VIAL) IV PRN; +oxyCODONE/Acetamin 5/325 MG* TAB PO PRN
[2018-09-14 11:12] VITALS: BP 151/94
--- NOTE | 2018-09-14 20:39 | PRO ---
THORACENTESIS REPORT: DATE OF PROCEDURE: 09/14/18 PREPROCEDURAL DIAGNOSIS: Large right pleural effusion. ANESTHESIA: Local with 1% lidocaine. DESCRIPTION OF PROCEDURE: Informed consent was obtained from the patient prior to the procedure after all the risks and benefits were thoroughly explained. Strict aseptic precautions and all barrier techniques were utilized. The patient was sitting up and leaning forward during the procedure. Portable ultrasound was utilized at bedside to localize large amounts of right pleural effusion. Site was marked, then appropriate ultrasound pictures were captured and placed in the patient's chart. CareFusion 8-Chinese thoracentesis catheter was utilized for the procedure. Area was disinfected with chlorhexidine. Sterile drape was placed. 1% lidocaine was then injected intradermally, subcutaneously down into the pleural space taking precautions. #11 scalpel blade was used to make stab incision. CareFusion 8-Chinese thoracentesis catheter was then inserted under manual suction, taken precautions. Catheter was left in place and needle was removed. 1450 mL of dark yellow fluid was removed under manual suction. The patient tolerated the procedure well. Postprocedural chest x-ray was performed, verified by me with no evidence of pneumothorax. Report from Radiology is pending. [id number]/[facility] #: [id number] [facility]
== END | disposition home or self-care (01) ==
LOC: OR 09:45
PROVIDERS: ATTEND Internal Medicine
DX: J90 Pleural effusion, not elsewhere classified (principal); J44.9 Chronic obstructive pulmonary disease, unspecified; C34.91 Malignant neoplasm of unspecified part of right bronchus or lung; Z79.01 Long term (current) use of anticoagulants; E11.9 Type 2 diabetes mellitus without complications; Z79.84 Long term (current) use of oral hypoglycemic drugs; I48.0 Paroxysmal atrial fibrillation; Z87.891 Personal history of nicotine dependence
CPT/HCPCS: 32554; 71045; 76604; 88112

== ENCOUNTER 2018-09-21 06:52 | Day surgery (SDC) | payer MEDICARE ==
[~2018-09-21 06:52] MED LIST changes: -Dexamethasone IV* 4 MG/ML 1 ML (4 MG) IV SLOW PU ONE; -DiMENhydriNATE IV* 50 MG/ML VIAL IV PUSH PRN; -Levalbuterol 0.63MG/3ML NEB* UNIT OF USE INH ONE; -Morphine 4 MG/ML VIAL (1 ml) 4 MG/ML VIAL IV PRN; -Naloxone* 0.4 MG/ML 1 ML VIAL IV PRN; -Ondansetron TAB* 4 MG PO ONE; -PROCHLORPERAZINE INJ 5 MG/ML 2 ML VIAL IV PRN; -fentaNYL* 50 MCG/ML 2 ML VIAL (100 MCG VIAL) IV PRN; -oxyCODONE/Acetamin 5/325 MG* TAB PO PRN
[2018-09-21] MEDS ORDERED: Famotidine IV* 10 MG/ML 2 ML (20 mg) ONE (07:36)
[2018-09-21 08:39] LABS: BUN/Creatinine Ratio 16.3 (8-20); Calcium 9.1 mg/dL (8.6-10.3); EGFR African American 85.9 (>60); Potassium 4.3 mmol/L (3.5-5.0)
[2018-09-21] MEDS ORDERED: Lidocaine 2% PF* 10 ML AMP ONE (08:54)
[2018-09-21] MEDS ORDERED: Midazolam* 1 MG/ML 5 ML VIAL (5 MG) ONE (09:13)
[2018-09-21] MEDS ORDERED: Rocuronium* 10 MG/ML VIAL ONE (09:13)
[2018-09-21] MEDS ORDERED: fentaNYL* 50 MCG/ML 2 ML VIAL (100 MCG VIAL) ONE ×2 (09:13→11:01)
[2018-09-21] MEDS ORDERED: Benzocaine/Butamben/Tetracain (CETACAINE - SINGLE USE) 5 gm TOPICAL ONE (09:40)
[2018-09-21] MEDS ORDERED: Naloxone* 0.4 MG/ML 1 ML VIAL IV PRN (10:05)
[2018-09-21] MEDS ORDERED: Levalbuterol 0.63MG/3ML NEB* UNIT OF USE INH PRN (10:05)
[2018-09-21] MEDS ORDERED: DiMENhydriNATE IV* 50 MG/ML VIAL IV PUSH PRN (10:05)
[2018-09-21] MEDS ORDERED: HYDROmorphone INJ1* 1 MG/ML SYRINGE IV PRN (10:05)
[2018-09-21] MEDS ORDERED: Acetaminophen IV 1GM/100ML * 1,000 MG/100 ML VIAL IVPB ONE (10:05)
[2018-09-21] MEDS ORDERED: Lidocaine 2% PF * 5 ML VIAL ONE (10:08)
[2018-09-21] MEDS ORDERED: Dexamethasone IV* 4 MG/ML 1 ML (4 MG) ONE (10:08)
[2018-09-21] MEDS ORDERED: Succinylcholine* 20 MG/ML 10 ML VIAL ONE (10:08)
[2018-09-21] MEDS ORDERED: Ondansetron INJ* 2 MG/ML VIAL ONE (10:08)
[2018-09-21] MEDS ORDERED: DiMENhydriNATE IV* 50 MG/ML VIAL ONE (10:08)
[2018-09-21] MEDS ORDERED: Propofol* 10 MG/ML 20 ML BTL ONE (10:08)
[2018-09-21] MEDS ORDERED: Midazolam* 1 MG/ML 2 ML VIAL (2 MG) ONE (11:23)
[2018-09-21 12:05] VITALS: BP 107/69
--- NOTE | 2018-09-21 13:06 | PRO ---
BRONCHOSCOPY REPORT: DATE OF PROCEDURE: 09/21/18 PROCEDURE PERFORMED: Bronchoscopy with endobronchial ultrasound-guided fine needle aspiration of mediastinal and hilar nodes. PRE-PROCEDURAL DIAGNOSIS: Prior history of lung cancer. ANESTHESIA: General anesthesia. ANESTHESIOLOGIST: Dr. Allen. DESCRIPTION OF PROCEDURE: Informed consent was obtained from the patient prior to the procedure after all the risks and benefits were thoroughly explained. The patient was intubated with 8.5 endotracheal tube. The patient was placed supine on the operating room table. Appropriate time-out was agreed on by the attending staff. Flexible Olympus bronchoscope was inserted through ET tube for airway inspection. The patient noted to have significant narrowing, likely from extensive compression of the right mainstem bronchus and right middle lobe bronchus. Airways are patent behind the narrowing. No obvious endobronchial lesions or mucosal irregularity was noted. Bronchoscope was then withdrawn and EBUS bronchoscope was inserted. Station 7 was sampled with 5 passes. Most of the samples on rapid onsite evaluation revealed blood and bronchial cells. R4 was then accessed with 5 passes. Rapid onsite evaluation revealed lymphatic tissue in one of the passes; other passes were mostly blood. R10 was sampled with 4 passes. Right hilar mass was passed with 2 passes. Rapid onsite evaluation revealed mostly blood and inflammatory cells. The patient tolerated the procedure well. The patient was extubated and seen in recovery in optimal condition. [id number]/[facility] #: [id number] [facility]
== END 2018-09-21 12:20 | disposition home or self-care (01) ==
LOC: OR 06:52
PROVIDERS: ATTEND Internal Medicine
DX: J90 Pleural effusion, not elsewhere classified (principal); C34.90 Malignant neoplasm of unspecified part of unspecified bronchus or lung; J44.9 Chronic obstructive pulmonary disease, unspecified; R06.02 Shortness of breath; I48.0 Paroxysmal atrial fibrillation; Z87.891 Personal history of nicotine dependence; Z79.01 Long term (current) use of anticoagulants; E11.9 Type 2 diabetes mellitus without complications; Z79.84 Long term (current) use of oral hypoglycemic drugs
CPT/HCPCS: 36415; 80048; 88172; 88173; 88177; 88305; J0330; J1100; J1240; J2001; J2250; J2405; J2704; J3010

== ENCOUNTER → 2018-12-19 | Day surgery (SDC) | payer MEDICARE ==
[2018-12-19 11:36] VITALS: BP 133/90
--- NOTE | 2018-12-19 12:20 | BRIEFOPN ---
Brief Operative/Procedure Note - Operation Details Pre-Op Diagnosis: Pleural effusion Post-Op Diagnosis: Large right pleural effusion Procedures: Thoracentesis-right Surgeon(s)/Proceduralists: marc Chen Anesthesia: Local-1% lidocaine 8cc Estimated Blood Loss: None Findings: Dark yellow fluid Specimen(s)/Culture(s) Description: Pl fluid for biochemical, cytology Complications: None
--- NOTE | 2018-12-19 15:27 | PRO ---
THORACENTESIS REPORT: DATE OF PROCEDURE: 12/19/18 PROCEDURE PERFORMED: Ultrasound-guided thoracentesis on the right side. PREPROCEDURAL DIAGNOSIS: Large right pleural effusion. POSTPROCEDURAL DIAGNOSIS: Large right pleural effusion. ANESTHESIA: Local anesthesia with 1% lidocaine 4 mL. DESCRIPTION OF PROCEDURE: Informed consent was obtained from the patient prior to the procedure after all the risks and benefits were thoroughly explained. The patient was sitting up and leaning forward during the procedure. A flexible ultrasound was utilized at the bedside to localize the pleural fluid. Strict aseptic precautions and barrier techniques were followed. CareFusion 8- Tanz[place] thoracentesis catheter was utilized for the procedure. After ultrasound localization and appropriate images being captured, area was disinfected with chlorhexidine. Sterile drape was then applied. Local anesthesia was achieved with 1% lidocaine intradermally subcutaneously down into the pleural space taking precautions. A #11 scalpel blade was utilized to make stab incision. 8- Tanzanian thoracentesis catheter was subsequently inserted under manual suction taking precautions. Catheter left in place and needle was removed. 1.6 L of dark yellow fluid was removed under manual suction. The patient tolerated the procedure well. Catheter was subsequently removed and a sterile Band-Aid applied to the area. The patient had mid discomfort in right shoulder postprocedure and had mild cough. The patient otherwise tolerated the procedure well and was discharged with appropriate instructions. Fluid was sent to the lab for cytochemical and biochemical testing. [id number]/[facility] #: [id number] [facility]
[2018-12-19 18:58] LABS: Body Fluid Source Pleural Fluid
[2018-12-19 20:08] LABS: Body Fluid Mono 2 %
[2018-12-21 15:17] LABS: Lactate Dehydrogenase, BF 90 U/L
== END | disposition home or self-care (01) ==
LOC: OR 10:52
PROVIDERS: ATTEND Internal Medicine
DX: J90 Pleural effusion, not elsewhere classified (principal); C34.91 Malignant neoplasm of unspecified part of right bronchus or lung; J44.9 Chronic obstructive pulmonary disease, unspecified; E11.9 Type 2 diabetes mellitus without complications; Z79.84 Long term (current) use of oral hypoglycemic drugs; I48.91 Unspecified atrial fibrillation; Z79.01 Long term (current) use of anticoagulants; Z87.891 Personal history of nicotine dependence
CPT/HCPCS: 32554; 36415; 76604; 82945; 83615; 83986; 84157; 87070; 87205; 88112; 88341; 88342; 89051

== ENCOUNTER 2022-08-10 05:40 | Inpatient (IN) ==
[~2022-08-10 05:40] MED LIST changes: -Buffered Lidocaine 1% SYRIN* 1 ML/SYRINGE INTRADERM ONE; -Famotidine IV* 10 MG/ML 2 ML (20 mg) IV ONE; -Lactated Ringers 1000 ML Bag* 1,000 ML IV SCH; +Naloxone 0.4 mg VIAL 0.4 mg/ml 1 ml VIAL IV PRN; +fentaNYL 100 mcg/2 ml 50 MCG/ML VIAL IV PRN
[2022-08-10] MEDS ORDERED: Sodium Citrate/Citric Acid LIQ 15 ML UDC PO ONE (06:00)
[2022-08-10] MEDS ORDERED: Lactated Ringers 1000 ml BAG 1,000 ML IV SCH (06:00)
[2022-08-10] MEDS ORDERED: Buffered Lidocaine 1% SYRIN 1 ml INTRADERM ONE (06:00)
[2022-08-10] MEDS ORDERED: Glycopyrrolate IV 0.2 MG/ML 1 ML VIAL ONE (06:11)
[2022-08-10] MEDS ORDERED: Propofol 10 MG/ML 20 ML BTL ONE ×2 (06:11→06:27)
[2022-08-10] MEDS ORDERED: Esmolol 10 MG/ML 10 ML (100 mg) IV ONE (06:11)
[2022-08-10] MEDS ORDERED: Ondansetron 4 mg VIAL 2 MG/ML 2 ml VIAL ONE (06:11)
[2022-08-10] MEDS ORDERED: Lidocaine 2% PF 5 ML VIAL ONE (06:12)
[2022-08-10] MEDS ORDERED: fentaNYL 100 mcg/2 ml 50 MCG/ML VIAL ONE (06:15)
[2022-08-10] MEDS ORDERED: Rocuronium 50 mg VIAL 10 mg/ml 5 ml VIAL (50 mg) ONE ×2 (06:20→06:47)
[2022-08-10] MEDS ORDERED: Sevoflurane BOTTLE ONE (06:26)
[2022-08-10] MEDS ORDERED: ceFAZolin 2 GM in NS PREMIX 0 GM/0 ML BAG IVPB ONE (06:34)
[2022-08-10] MEDS ORDERED: Sodium Citrate/Citric Acid LIQ 15 ML UDC ONE (06:34)
[2022-08-10] MEDS ORDERED: Remifentanil 2 MG VIAL ONE (06:45)
[2022-08-10] MEDS ORDERED: Phenylephrine IV 10 MG/ML 1 ml VIAL ONE (06:54)
[2022-08-10 07:02] LABS: Calcium 8.7 mg/dL (8.6-10.3); Creatinine, Serum 1.5 mg/dL (0.67-1.17); Magnesium 2.1 mg/dL (1.9-2.7); Potassium 5.7 mmol/L (3.5-5.0); eGFR CKD-EPI 49.2 (>60)
[2022-08-10] MEDS ORDERED: Chlorhexidine MOUTHWASH 0.12% 15 ML UDC ONE (07:13)
[2022-08-10] MEDS ORDERED: Prochlorperazine 5 mg/ml 2 ml VIAL (10 mg) IV PRN (07:51)
[2022-08-10] MEDS ORDERED: SODIUM ZIRCONIUM CYCLOSILICATE 10 GM PACKET PO ONE (09:52)
[2022-08-10] MEDS ORDERED: Dextrose 50% Syringe 50 ml 25 GM/50 ML SYRINGE IV PUSH PRN (09:54)
[2022-08-10] MEDS ORDERED: Insulin GLARGINE 100 un/ml 10 ml VIAL SUBCUT ONE (09:54)
[2022-08-10] MEDS: Enoxaparin 80 MG/0.8 ML SYR SUBCUT SCH ×2 (10:13→21:00)
[2022-08-10] MEDS: Lactated Ringers 1000 ml BAG 1,000 ML IV SCH ×2 (10:20→23:59)
[2022-08-10 17:55] LABS: Calcium 8.3 mg/dL (8.6-10.3); Creatinine, Serum 1.29 mg/dL (0.67-1.17); Magnesium 1.9 mg/dL (1.9-2.7); Potassium 4.3 mmol/L (3.5-5.0); eGFR CKD-EPI 58.9 (>60)
[2022-08-10] MEDS ORDERED: Insulin GLARGINE 100 un/ml 10 ml VIAL SUBCUT SCH ×3 (21:00)
[2022-08-11 07:11] LABS: Calcium 7.9 mg/dL (8.6-10.3); Creatinine, Serum 1.13 mg/dL (0.67-1.17); Magnesium 1.6 mg/dL (1.9-2.7); Potassium 4.3 mmol/L (3.5-5.0); eGFR CKD-EPI 69.1 (>60)
[2022-08-11] MEDS ORDERED: Magnesium Sulfate 2 gm BAG 2 GM/50 ML BAG IVPB ONE (07:26)
[2022-08-11] MEDS: Enoxaparin 80 MG/0.8 ML SYR SUBCUT SCH (08:12)
[2022-08-11] MEDS ORDERED: Magnesium Sulfate IV 3 GM in NS 0.9% 100 ml BAG 100 ML IVPB ONE (09:04)
[2022-08-11] MEDS ORDERED: Insulin GLARGINE 100 un/ml 10 ml VIAL SUBCUT SCH (15:57)
[2022-08-12] MEDS ORDERED: Propofol 10 MG/ML 20 ML BTL ONE (05:51)
[2022-08-12] MEDS ORDERED: Esmolol 10 MG/ML 10 ML (100 mg) IV ONE (05:51)
[2022-08-12] MEDS ORDERED: Lidocaine 2% PF 5 ML VIAL ONE ×2 (05:53→10:21)
[2022-08-12] MEDS ORDERED: Propofol 0 MG/0 ML BTL ONE (05:53)
[2022-08-12] MEDS ORDERED: Buffered Lidocaine 1% SYRIN 1 ml INTRADERM ONE (06:00)
[2022-08-12] MEDS ORDERED: fentaNYL 100 mcg/2 ml 50 MCG/ML VIAL ONE (06:10)
[2022-08-12] MEDS ORDERED: ceFAZolin 2 GM PREMIX 2 GM/50 ML BAG ONE (06:11)
[2022-08-12] MEDS ORDERED: Remifentanil 2 MG VIAL ONE ×2 (06:11→08:27)
[2022-08-12] MEDS ORDERED: Rocuronium 50 mg VIAL 10 mg/ml 5 ml VIAL (50 mg) ONE ×2 (06:20→06:55)
[2022-08-12] MEDS ORDERED: Phenylephrine IV 10 MG/ML 1 ml VIAL ONE (06:40)
[2022-08-12] MEDS ORDERED: Mannitol 25% (12.5 GM) 50 ML 12.5 GM/50 ML VIAL ONE ×2 (06:50→06:58)
[2022-08-12] MEDS ORDERED: Lidocaine 1% w EPI 1:200,000 SDV 30 ML VIAL ONE (06:58)
[2022-08-12] MEDS ORDERED: Gelfoam Sponge SIZE 100 SPONGE ONE (06:58)
[2022-08-12] MEDS ORDERED: Thrombin 5,000 UNITS(BOVINE) for Ultrasound Guided Pseudoaneursym ONE (06:58)
[2022-08-12 07:01] LABS: ABS Basophils 0.1 10^3/uL (0.0-0.1); ABS Lymphocytes 0.2 10^3/uL (1.0-4.8); ABS Monocytes 0.2 10^3/uL (0.0-1.1); ABS Neutrophils 9.5 10^3/uL (1.5-7.6); Eosinophil % 0.1 %; Hematocrit 38.9 % (38-53); Hemoglobin 13.2 g/dL (13.2-16.3); Lymphocyte % 2.3 %; Mean Corpuscular Hemoglobin 29.1 pg (27-33); Mean Corpuscular Hgb Conc 34.1 g/dL (31-36); Mean Corpuscular Volume 85.5 fL (80-97); Mean Platelet Volume 7.1 fL (7.5-11.2); Platelet Count 132 10^3/uL (150-450); Red Blood Count 4.54 10^6/uL (4.06-5.63); Red Cell Distribution Width 15.3 % (12-17); White Blood Count 10.1 10^3/uL (3.6-10.2)
[2022-08-12 07:34] LABS: Calcium 8.1 mg/dL (8.6-10.3); Magnesium 2.6 mg/dL (1.9-2.7); Potassium 4.8 mmol/L (3.5-5.0)
[2022-08-12 07:40] LABS: Creatinine, Serum 1.13 mg/dL (0.67-1.17); eGFR CKD-EPI 69.1 (>60)
[2022-08-12] MEDS ORDERED: levETIRAcetam 500 MG/100 ML IV ONE (08:00)
[2022-08-12 08:49] LABS: PCO2 Arterial 30 mmHg (35-45); PO2 Arterial 316 mmHg (80-100)
[2022-08-12] MEDS ORDERED: Levalbuterol HFA INHALER MDI ONE (08:56)
[2022-08-12] MEDS ORDERED: Albumin Human 5% 12.5 GM/250 ML BTL IV ONE (10:10)
[2022-08-12] MEDS ORDERED: Acetaminophen IV 1 GM/100ML 1,000 MG/100 ML BAG IV ONE ×2 (10:20→11:28)
[2022-08-12] MEDS ORDERED: Ondansetron 4 mg VIAL 2 MG/ML 2 ml VIAL ONE (10:44)
[2022-08-12] MEDS ORDERED: Naloxone 0.4 mg VIAL 0.4 mg/ml 1 ml VIAL IV PRN (11:28)
[2022-08-12] MEDS ORDERED: Ondansetron 4 mg VIAL 2 MG/ML 2 ml VIAL IV PRN ×2 (11:28→13:37)
[2022-08-12] MEDS ORDERED: fentaNYL 100 mcg/2 ml 50 MCG/ML VIAL IV PRN (11:28)
[2022-08-12] MEDS ORDERED: Midazolam 2 mg/2 ml VIAL 1 mg/ml 2 ml VIAL (2 mg) ONE (11:33)
[2022-08-12 11:56] LABS: Hematocrit 31.7 % (38-53); Hemoglobin 10.7 g/dL (13.2-16.3); Mean Corpuscular Hemoglobin 28.5 pg (27-33); Mean Corpuscular Hgb Conc 33.6 g/dL (31-36); Mean Platelet Volume 6.9 fL (7.5-11.2); Platelet Count 112 10^3/uL (150-450); Red Blood Count 3.74 10^6/uL (4.06-5.63); Red Cell Distribution Width 15.4 % (12-17); White Blood Count 9.9 10^3/uL (3.6-10.2)
[2022-08-12] MEDS ORDERED: Lorazepam PYXIS KEY PRN (12:07)
[2022-08-12] MEDS ORDERED: LORazepam 2 mg VIAL 1 ml IV PUSH PRN ×3 (12:07→13:07)
[2022-08-12 12:13] LABS: ABS Lymphocytes 0.3 10^3/uL (1.0-4.8); ABS Monocytes 0.3 10^3/uL (0.0-1.1); ABS Neutrophils 9.4 10^3/uL (1.5-7.6); ABS Nucleated RBC 0.01 10^3/ul; Eosinophil % 0.1 %; Lymphocyte % 3.1 %; Nucleated Red Blood Cells % 0.1 /100 WBC (0.0-0.4)
[2022-08-12 12:27] LABS: Calcium 6.7 mg/dL (8.6-10.3); Creatinine, Serum 1.03 mg/dL (0.67-1.17); Potassium 4.1 mmol/L (3.5-5.0); eGFR CKD-EPI 77.2 (>60)
[2022-08-12] MEDS ORDERED: Lorazepam PYXIS KEY ONE (13:05)
[2022-08-12] MEDS ORDERED: LORazepam 2 mg VIAL 1 ml ONE (13:06)
[2022-08-12] MEDS ORDERED: LORazepam 2 mg VIAL 1 ml IV PUSH ONE (13:06)
[2022-08-12] MEDS ORDERED: Labetalol IV 5 MG/ML 20 ml VIAL IV PRN (13:35)
[2022-08-12] MEDS ORDERED: hydrALAZINE 20 mg/ml 1 ML Vial IV IV SLOW PU PRN (13:36)
[2022-08-12] MEDS: NS 0.9% 1000 ml BAG 1,000 ML IV SCH (13:46)
[2022-08-12] MEDS: levETIRAcetam 500 MG/100 ML IV SCH (20:55)
[2022-08-12] MEDS: Polyethylene Glycol 3350 17 GM PACKET PO PRN (21:50)
[2022-08-13 04:53] LABS: ABS Lymphocytes 0.3 10^3/uL (1.0-4.8); ABS Monocytes 0.2 10^3/uL (0.0-1.1); ABS Neutrophils 9.3 10^3/uL (1.5-7.6); Eosinophil % 0.4 %; Hemoglobin 11.2 g/dL (13.2-16.3); Mean Corpuscular Hemoglobin 28.9 pg (27-33); Mean Platelet Volume 6.9 fL (7.5-11.2); Platelet Count 105 10^3/uL (150-450); Red Blood Count 3.88 10^6/uL (4.06-5.63); Red Cell Distribution Width 15.5 % (12-17); White Blood Count 9.9 10^3/uL (3.6-10.2)
[2022-08-13 05:39] LABS: Creatinine, Serum 1.05 mg/dL (0.67-1.17); Potassium 3.8 mmol/L (3.5-5.0); eGFR CKD-EPI 75.4 (>60)
[2022-08-13] MEDS: Polyethylene Glycol 3350 17 GM PACKET PO PRN (08:02)
[2022-08-13] MEDS: levETIRAcetam 500 MG/100 ML IV SCH (08:06)
[2022-08-13] MEDS ORDERED: Gadoteridol (CONTRAST) 279.3 MG/ML 10 ML IV ONE (12:36)
[2022-08-13] MEDS ORDERED: Lactated Ringers 1000 ml BAG 250 ML IV ONE (15:55)
[2022-08-13] MEDS ORDERED: Lactated Ringers 1000 ml BAG 1,000 ML IV ONE (17:54)
[2022-08-14 04:58] LABS: ABS Basophils 0.1 10^3/uL (0.0-0.1); ABS Lymphocytes 0.3 10^3/uL (1.0-4.8); ABS Monocytes 0.2 10^3/uL (0.0-1.1); ABS Neutrophils 6.2 10^3/uL (1.5-7.6); ABS Nucleated RBC 0.01 10^3/ul; Eosinophil % 0.7 %; Hematocrit 31.2 % (38-53); Hemoglobin 10.6 g/dL (13.2-16.3); Lymphocyte % 4.8 %; Mean Corpuscular Hemoglobin 28.7 pg (27-33); Mean Corpuscular Hgb Conc 33.9 g/dL (31-36); Mean Corpuscular Volume 84.8 fL (80-97); Mean Platelet Volume 6.9 fL (7.5-11.2); Nucleated Red Blood Cells % 0.2 /100 WBC (0.0-0.4); Platelet Count 100 10^3/uL (150-450); Red Blood Count 3.68 10^6/uL (4.06-5.63); Red Cell Distribution Width 15.5 % (12-17); White Blood Count 6.8 10^3/uL (3.6-10.2)
[2022-08-14 05:43] LABS: Calcium 7.6 mg/dL (8.6-10.3); Creatinine, Serum 1.15 mg/dL (0.67-1.17); Magnesium 2.2 mg/dL (1.9-2.7); Phosphorus 2.6 mg/dL (2.5-5.0); Potassium 3.8 mmol/L (3.5-5.0); eGFR CKD-EPI 67.6 (>60)
[2022-08-14] MEDS: NS 0.9% 1000 ml BAG 1,000 ML IV SCH (08:20)
[2022-08-14] MEDS ORDERED: Metoprolol Tartrate 5 mg VIAL 5 ml VIAL (1 mg/ml) IV PRN (18:38)
[2022-08-14] MEDS ORDERED: Metoprolol Tartrate 5 mg VIAL 5 ml VIAL (1 mg/ml) ONE (18:42)
[2022-08-15 08:53] LABS: ABS Eosinophils 0.1 10^3/uL (0.0-0.5); ABS Lymphocytes 0.4 10^3/uL (1.0-4.8); ABS Monocytes 0.2 10^3/uL (0.0-1.1); ABS Neutrophils 5.9 10^3/uL (1.5-7.6); ABS Nucleated RBC 0.01 10^3/ul; Eosinophil % 0.8 %; Hematocrit 30.7 % (38-53); Hemoglobin 10.3 g/dL (13.2-16.3); Lymphocyte % 5.6 %; Mean Corpuscular Hemoglobin 28.5 pg (27-33); Mean Corpuscular Hgb Conc 33.6 g/dL (31-36); Mean Corpuscular Volume 84.9 fL (80-97); Mean Platelet Volume 7.3 fL (7.5-11.2); Nucleated Red Blood Cells % 0.1 /100 WBC (0.0-0.4); Platelet Count 128 10^3/uL (150-450); Red Blood Count 3.62 10^6/uL (4.06-5.63); Red Cell Distribution Width 15.7 % (12-17); White Blood Count 6.6 10^3/uL (3.6-10.2)
[2022-08-15 09:49] LABS: Calcium 7.6 mg/dL (8.6-10.3); Creatinine, Serum 1.13 mg/dL (0.67-1.17); Magnesium 2.2 mg/dL (1.9-2.7); Phosphorus 2.6 mg/dL (2.5-5.0); Potassium 3.8 mmol/L (3.5-5.0); eGFR CKD-EPI 69.1 (>60)
[2022-08-15] MEDS ORDERED: Lactated Ringers 1000 ml BAG 1,000 ML IV ONE (20:29)
[2022-08-16 04:27] LABS: Hematocrit 32.9 % (38-53); Hemoglobin 11.2 g/dL (13.2-16.3); Mean Corpuscular Hgb Conc 34.1 g/dL (31-36); Mean Corpuscular Volume 85.2 fL (80-97); Mean Platelet Volume 6.7 fL (7.5-11.2); Platelet Count 147 10^3/uL (150-450); Red Blood Count 3.87 10^6/uL (4.06-5.63); Red Cell Distribution Width 15.6 % (12-17); White Blood Count 5.1 10^3/uL (3.6-10.2)
[2022-08-16 04:53] LABS: Calcium 7.6 mg/dL (8.6-10.3); Creatinine, Serum 0.92 mg/dL (0.67-1.17); Magnesium 2.1 mg/dL (1.9-2.7); Phosphorus 2.2 mg/dL (2.5-5.0); Potassium 3.5 mmol/L (3.5-5.0); eGFR CKD-EPI 88.4 (>60)
[2022-08-16 05:25] LABS: ABS Eosinophils 0.1 10^3/uL (0.0-0.5); ABS Lymphocytes 0.4 10^3/uL (1.0-4.8); ABS Monocytes 0.3 10^3/uL (0.0-1.1); ABS Neutrophils 4.3 10^3/uL (1.5-7.6); Lymphocyte % 8.3 %; Nucleated Red Blood Cells % 0.1 /100 WBC (0.0-0.4)
[2022-08-16] MEDS ORDERED: Potassium Phosphate IV 10 MMOL in NS 0.9% 250 ml 250 ML IVPB ONE (06:00)
[2022-08-16] MEDS: NS 0.9% 1000 ml BAG 1,000 ML IV SCH (08:31)
[2022-08-16] MEDS ORDERED: Dextrose 50% Syringe 50 ml 25 GM/50 ML SYRINGE IV PUSH PRN (16:47)
[2022-08-17 09:10] LABS: Calcium 7.8 mg/dL (8.6-10.3); Creatinine, Serum 1.17 mg/dL (0.67-1.17); Potassium 4.2 mmol/L (3.5-5.0); eGFR CKD-EPI 66.2 (>60)
[2022-08-18 07:12] LABS: Calcium 7.5 mg/dL (8.6-10.3); Creatinine, Serum 1.12 mg/dL (0.67-1.17); eGFR CKD-EPI 69.8 (>60)
[2022-08-18] MEDS: HYDROcodone/ACETAMIN 5/325 mg TAB PO PRN (21:57)
[2022-08-19 07:53] LABS: Calcium 7.4 mg/dL (8.6-10.3); Creatinine, Serum 0.92 mg/dL (0.67-1.17); Potassium 3.7 mmol/L (3.5-5.0); eGFR CKD-EPI 88.4 (>60)
[2022-08-19] MEDS: HYDROcodone/ACETAMIN 5/325 mg TAB PO PRN (09:03)
[2022-08-20] MEDS ORDERED: Senna TAB 8.6 mg TAB PO PRN (11:42)
[2022-08-20 11:54] LABS: Hematocrit 27.8 % (38-53); Hemoglobin 9.6 g/dL (13.2-16.3); Mean Corpuscular Hgb Conc 34.6 g/dL (31-36); Mean Corpuscular Volume 83.7 fL (80-97); Mean Platelet Volume 6.5 fL (7.5-11.2); Platelet Count 183 10^3/uL (150-450); Red Blood Count 3.33 10^6/uL (4.06-5.63); Red Cell Distribution Width 15.8 % (12-17); White Blood Count 4.4 10^3/uL (3.6-10.2)
[2022-08-20 12:12] LABS: Activated Partial Thrombo Time 31.1 seconds (26.0-38.0); INR 1.52 (0.88-1.18)
[2022-08-20] MEDS: Senna TAB 8.6 mg TAB PO SCH (12:43)
[2022-08-20] MEDS: Polyethylene Glycol 3350 17 GM PACKET PO SCH (12:44)
[2022-08-20 12:45] LABS: ABS Eosinophils 0.1 10^3/uL (0.0-0.5); ABS Lymphocytes 0.4 10^3/uL (1.0-4.8); ABS Monocytes 0.2 10^3/uL (0.0-1.1); ABS Neutrophils 3.8 10^3/uL (1.5-7.6); ABS Nucleated RBC 0.02 10^3/ul; Eosinophil % 1.3 %; Lymphocyte % 8.2 %; Nucleated Red Blood Cells % 0.5 /100 WBC (0.0-0.4)
[2022-08-21 07:02] LABS: ABS Lymphocytes 0.3 10^3/uL (1.0-4.8); ABS Monocytes 0.2 10^3/uL (0.0-1.1); ABS Neutrophils 5.4 10^3/uL (1.5-7.6); ABS Nucleated RBC 0.01 10^3/ul; Eosinophil % 0.7 %; Hematocrit 30.5 % (38-53); Hemoglobin 10.2 g/dL (13.2-16.3); Lymphocyte % 5.7 %; Mean Corpuscular Hemoglobin 28.2 pg (27-33); Mean Corpuscular Hgb Conc 33.5 g/dL (31-36); Mean Corpuscular Volume 84.2 fL (80-97); Mean Platelet Volume 6.6 fL (7.5-11.2); Nucleated Red Blood Cells % 0.2 /100 WBC (0.0-0.4); Platelet Count 229 10^3/uL (150-450); Red Blood Count 3.63 10^6/uL (4.06-5.63); Red Cell Distribution Width 15.7 % (12-17)
[2022-08-21 07:16] LABS: INR 2.04 (0.88-1.18)
[2022-08-21 07:21] LABS: Calcium 7.7 mg/dL (8.6-10.3); Creatinine, Serum 1.06 mg/dL (0.67-1.17); Magnesium 2.6 mg/dL (1.9-2.7); Phosphorus 2.5 mg/dL (2.5-5.0); Potassium 3.7 mmol/L (3.5-5.0); eGFR CKD-EPI 74.6 (>60)
[2022-08-21] MEDS: Senna TAB 8.6 mg TAB PO SCH ×2 (08:33→17:15)
[2022-08-21] MEDS: Polyethylene Glycol 3350 17 GM PACKET PO SCH (08:36)
[2022-08-21 15:59] LABS: Calcium 7.8 mg/dL (8.6-10.3); Creatinine, Serum 1.12 mg/dL (0.67-1.17); Potassium 3.7 mmol/L (3.5-5.0); eGFR CKD-EPI 69.8 (>60)
[2022-08-22 06:07] LABS: Calcium 7.7 mg/dL (8.6-10.3); Creatinine, Serum 1.1 mg/dL (0.67-1.17); Potassium 3.7 mmol/L (3.5-5.0); eGFR CKD-EPI 71.3 (>60)
[2022-08-22] MEDS ORDERED: Potassium Chlor 20 meq TAB.ER PO ONE (07:12)
[2022-08-22] MEDS: Senna TAB 8.6 mg TAB PO SCH (08:57)
[2022-08-22] MEDS: Polyethylene Glycol 3350 17 GM PACKET PO SCH (08:57)
[2022-08-22 18:12] LABS: Creatinine, Serum 1.17 mg/dL (0.67-1.17); Potassium 4.9 mmol/L (3.5-5.0); eGFR CKD-EPI 66.2 (>60)
[2022-08-23 07:38] LABS: Magnesium 2.4 mg/dL (1.9-2.7)
[2022-08-23] MEDS: Senna TAB 8.6 mg TAB PO SCH (08:31)
[2022-08-23] MEDS: Polyethylene Glycol 3350 17 GM PACKET PO SCH (08:31)
[2022-08-23 09:19] LABS: Hematocrit 28.6 % (38-53); Hemoglobin 9.7 g/dL (13.2-16.3); Mean Corpuscular Hemoglobin 29.6 pg (27-33); Mean Corpuscular Hgb Conc 33.8 g/dL (31-36); Mean Corpuscular Volume 87.4 fL (80-97); Mean Platelet Volume 6.7 fL (7.5-11.2); Platelet Count 237 10^3/uL (150-450); Red Blood Count 3.27 10^6/uL (4.06-5.63); Red Cell Distribution Width 16.6 % (12-17); White Blood Count 6.1 10^3/uL (3.6-10.2)
[2022-08-23 09:51] LABS: Calcium 7.9 mg/dL (8.6-10.3); Potassium 4.6 mmol/L (3.5-5.0)
[2022-08-23 09:56] LABS: C Reactive Protein 52.3 mg/L (<8.01); Creatinine, Serum 1.1 mg/dL (0.67-1.17); eGFR CKD-EPI 71.3 (>60)
[2022-08-23 10:27] LABS: ABS Eosinophils 0.1 10^3/uL (0.0-0.5); ABS Lymphocytes 0.5 10^3/uL (1.0-4.8); ABS Monocytes 0.4 10^3/uL (0.0-1.1); ABS Neutrophils 5.1 10^3/uL (1.5-7.6); ABS Nucleated RBC 0.01 10^3/ul; Lymphocyte % 7.9 %; Nucleated Red Blood Cells % 0.2 /100 WBC (0.0-0.4)
[2022-08-23] MEDS ORDERED: Cyanocobalamin INJ 1,000 MCG/ML VIAL 1 ML VIAL IM ONE (10:32)
[2022-08-23] MEDS ORDERED: Iodixanol (CONTRAST) 320 MG/ML 100 ML SDV IV ONE (11:02)
[2022-08-23 18:58] LABS: Albumin 2.8 g/dL (3.2-5.2); Albumin/Globulin Ratio 1.2 (1-3); Calcium 7.9 mg/dL (8.6-10.3); Creatinine, Serum 1.03 mg/dL (0.67-1.17); Globulin 2.3 g/dL (2-4); Total Bilirubin 0.7 mg/dL (0.2-1.0); Total Protein 5.1 g/dL (6.4-8.9); eGFR CKD-EPI 77.2 (>60)
[2022-08-24 06:14] LABS: ABS Lymphocytes 0.5 10^3/uL (1.0-4.8); ABS Monocytes 0.5 10^3/uL (0.0-1.1); ABS Neutrophils 4.2 10^3/uL (1.5-7.6); ABS Nucleated RBC 0.01 10^3/ul; Eosinophil % 0.8 %; Hematocrit 27.2 % (38-53); Hemoglobin 9.2 g/dL (13.2-16.3); Lymphocyte % 10.3 %; Mean Corpuscular Hemoglobin 28.8 pg (27-33); Mean Corpuscular Hgb Conc 33.8 g/dL (31-36); Mean Corpuscular Volume 85.4 fL (80-97); Mean Platelet Volume 6.5 fL (7.5-11.2); Nucleated Red Blood Cells % 0.2 /100 WBC (0.0-0.4); Platelet Count 265 10^3/uL (150-450); Red Blood Count 3.19 10^6/uL (4.06-5.63); Red Cell Distribution Width 16.7 % (12-17); White Blood Count 5.2 10^3/uL (3.6-10.2)
[2022-08-24 06:32] LABS: Creatinine, Serum 1.01 mg/dL (0.67-1.17); Magnesium 2.3 mg/dL (1.9-2.7); Potassium 4.2 mmol/L (3.5-5.0)
[2022-08-24 09:58] LABS: Rapid COVID-19 Molecular Undetected (Undetected)
[2022-08-24] MEDS: Polyethylene Glycol 3350 17 GM PACKET PO SCH (12:36)
[2022-08-24] MEDS: Senna TAB 8.6 mg TAB PO SCH (12:38)
[2022-08-24] MEDS ORDERED: Insulin GLARGINE 100 un/ml 10 ml VIAL SUBCUT SCH (21:00)
[2022-08-25 06:55] LABS: Calcium 7.9 mg/dL (8.6-10.3); Creatinine, Serum 1.06 mg/dL (0.67-1.17); Potassium 3.8 mmol/L (3.5-5.0); eGFR CKD-EPI 74.6 (>60)
[2022-08-25] MEDS: Senna TAB 8.6 mg TAB PO SCH (09:48)
[2022-08-25] MEDS: Polyethylene Glycol 3350 17 GM PACKET PO SCH (09:50)
[2022-08-25 14:11] VITALS: BP 104/68
== END 2022-08-25 14:52 | DRG 26 ==
LOC: AA 05:40 → SSU 07:43 → ICU 08-12 13:37 → SSU 08-16 16:53
PROVIDERS: ADMIT Neurological Surgery; ATTEND Neurological Surgery